=== PATIENT | male | born 1930 | race Caucasian/White ===

== ENCOUNTER → 2016-07-11 | Outpatient (REF) | payer MEDICARE ==
[~2016-07-11] MED LIST: /PANT40TA PO; /TAMS4CA PO; ACET50TA PO; ASCO25TA PO; ASPI1TAB PO; ASPI81TA21 PO; CARV12.5 PO; CELE40TA PO; CIPR500T89 PO; CORE25TA PO; CORE6.25 PO; FINA5TAB2 PO; FLUO40CA PO; FURO20TA PO; GLIM2TAB PO; HYDR-3713 PO; ISOS20TA2 PO; ISOS30TA4 PO; LASI20TA PO; LASI40TA PO; LISI-542 PO; MECL12.575 PO; RANI150T PO; SIMV20TA2 PO; SIMV40TA2 PO; TAMS0.4C2 PO; TIOT18INH INH; TYLE325T5 PO
[2016-07-11 16:05] LABS: ALBUMIN 3.9 GM/DL (3.2-5.2); ALBUMIN/GLOBULIN RATIO 1.22 (1.00-1.93); BILIRUBIN,TOTAL 0.5 MG/DL (0.2-1.0); CALCIUM LEVEL 8.6 MG/DL (8.8-10.2); CREATININE FOR GFR 1.32 MG/DL (0.70-1.30); GLOMERULAR FILTRATION RATE 54.7 (>35); POTASSIUM SERUM 4.3 MEQ/L (3.5-5.1); TOTAL PROTEIN 7.1 GM/DL (6.4-8.2)
== END ==
LOC: M LABDRWSH 15:25
PROVIDERS: ATTEND Emergency Medicine
DX: E11.9 Type 2 diabetes mellitus without complications (principal); I10 Essential (primary) hypertension; E78.2 Mixed hyperlipidemia; E55.9 Vitamin D deficiency, unspecified

== ENCOUNTER 2016-11-12 13:58 | Inpatient (IN) | payer MEDICARE ==
[~2016-11-12] VITALS: Ht 175.3 cm; Wt 84.0 kg
[2016-11-12] MEDS ORDERED: ONDANSETRON 4 MG ORAL DISINTEGRATING TAB (S0181) PO ONE (15:00)
--- NOTE | 2016-11-12 15:34 | REP ---
ABDOMEN, FLAT UPRIGHT PA CHEST, THREE VIEWS: HISTORY: Abdominal pain. COMPARISON: 04/06/2015. A small amount of air is present in small and large intestine. There are no air fluid levels or dilated loops of intestine. There is no pneumoperitoneum. Linear density is present in the left lower lobe consistent with atelectasis or scar. The right lung is clear. IMPRESSION: 1. Nonspecific bowel gas pattern. 2. Left lower lobe atelectasis or scar. Signed by Rajesh Munguia MD 11/12/2016 03:49 P
[2016-11-12 15:59] LABS: BASO % 0.7 % (0.0-1.0); EOS # 0.1 K/mm3 (0.0-0.50); EOS % 0.7 % (0.0-3.0); LARGE UNSTAINED CELL # 0.2 K/mm3 (0.0-0.4); LARGE UNSTAINED CELL % 1.9 % (0.0-4.0); LYMPH # 1.4 K/mm3 (1.5-4.5); MEAN CORPUSCULAR HEMOGLOBIN 31.8 pg (27.0-33.0); MEAN CORPUSCULAR HGB CONC 34.1 g/dl (32.0-36.5); MEAN CORPUSCULAR VOLUME 93.5 fl (80.0-96.0); MONO # 0.5 K/mm3 (0.0-0.8); MONO % 6.6 % (0.0-5.0); NEUTROPHILS # 6.2 K/mm3 (1.8-7.7); NEUTROPHILS % 75.2 % (36.0-66.0); PLATELET COUNT, AUTOMATED 213 k/mm3 (150-450); RED CELL DISTRIBUTION WIDTH 12.9 % (11.5-14.5); WHITE BLOOD COUNT 8.2 K/mm3 (4.0-10.0)
[2016-11-12 16:21] LABS: ALBUMIN 4.1 GM/DL (3.2-5.2); ALBUMIN/GLOBULIN RATIO 1.03 (1.00-1.93); BILIRUBIN,DIRECT 0.2 MG/DL (0.0-0.2); CALCIUM LEVEL 9.5 MG/DL (8.8-10.2); CREATININE FOR GFR 2.15 MG/DL (0.70-1.30); GLOMERULAR FILTRATION RATE 31.1 (>35); TOTAL PROTEIN 8.1 GM/DL (6.4-8.2)
[2016-11-12] MEDS ORDERED: NS 1,000 ML IV ONE (16:30)
[2016-11-12 16:32] LABS: POTASSIUM SERUM 5.3 MEQ/L (3.5-5.1)
[2016-11-12] MEDS ORDERED: HumuLIN R (REGULAR) INSULIN (NovoLIN R) **100U/ML** PER UNIT IV ONE (16:45)
[2016-11-12 16:50] LABS: VENOUS BASE EXCESS -2.5 (-2.0-2.0); VENOUS O2 SATURATION 32.3 % (60.0-80.0); VENOUS PARTIAL PRESSURE CO2 48.7 mmHg (38.0-50.0); VENOUS STANDARD HCO3 20.8 MEQ/L; VENOUS TOTAL CO2 25.7 MEQ/L (24.0-28.0)
[2016-11-12] MEDS ORDERED: SERT50TA PO (18:09)
[2016-11-12] MEDS ORDERED: BUPR150T3 PO (18:09)
[2016-11-12] MEDS ORDERED: SITA50TAB PO (18:09)
[2016-11-12] MEDS ORDERED: FLOM5CAP PO (18:09)
[2016-11-12] MEDS ORDERED: CARV25TA PO (18:11)
[2016-11-12] MEDS ORDERED: ONDANSETRON 4MG/2ML VIAL (J2405) IV PRN (19:30)
[2016-11-12] MEDS ORDERED: PERCOCET 5MG/325MG TAB PO PRN (19:30)
[2016-11-12] MEDS ORDERED: GLUCOSE 4 GM CHEW TABLET PO PRN (19:30)
[2016-11-12] MEDS ORDERED: ACETAMINOPHEN TAB 650MG DOSE (2X325MG) PO PRN (19:30)
[2016-11-12] MEDS ORDERED: NS 1,000 ML IV SCH (19:30)
[2016-11-12] MEDS ORDERED: BISACODYL 5 MG TAB PO PRN (19:30)
[2016-11-12] MEDS ORDERED: DEXTROSE 50% 50 ML SYRINGE IV PRN (19:30)
[2016-11-12] MEDS ORDERED: GLUCAGON FOR INJ 1 MG VIAL (J1610) SC PRN (19:30)
[2016-11-12] MEDS: NS 1,000 ML IV SCH (19:56)
[2016-11-12] MEDS ORDERED: CARVedilol 12.5 MG TAB PO SCH (21:00)
[2016-11-12] MEDS: HumaLOG INSULIN (NovoLOG) PER UNIT SC SCH (21:00)
[2016-11-12 21:04] LABS: CALCIUM LEVEL 8.7 MG/DL (8.8-10.2); CREATININE FOR GFR 1.79 MG/DL (0.70-1.30); GLOMERULAR FILTRATION RATE 38.4 (>35); POTASSIUM SERUM 4.5 MEQ/L (3.5-5.1)
[2016-11-12] MEDS: HEPARIN SOD (PORCINE) 5000 UNITS/ML VIAL SC SCH (21:21)
[2016-11-12] MEDS: SERTRALINE HCL 50 MG TAB PO SCH (21:22)
[2016-11-12] MEDS: ASPIRIN 81 MG ENTERIC TAB PO SCH (21:22)
[2016-11-12] MEDS: TAMSULOSIN 0.4 MG CAP PO SCH (21:23)
[2016-11-12] MEDS: ISOSORBIDE MON. (IMDUR) 30 MG XR TAB PO SCH (21:31)
[2016-11-12] MEDS: SIMVASTATIN 40 MG TAB PO SCH (22:47)
[2016-11-12 23:27] VITALS: BP 105/57
[2016-11-13] VITALS: BP 92/50
[2016-11-13] MEDS ORDERED: METOPROLOL TART 50 MG TAB PO ONE (01:30)
[2016-11-13 04:00] VITALS: BP 109/54
[2016-11-13 07:35] LABS: BASO % 0.6 % (0.0-1.0); EOS # 0.2 K/mm3 (0.0-0.50); LARGE UNSTAINED CELL # 0.2 K/mm3 (0.0-0.4); LARGE UNSTAINED CELL % 2.1 % (0.0-4.0); LYMPH # 1.4 K/mm3 (1.5-4.5); LYMPH % 18.5 % (24.0-44.0); MEAN CORPUSCULAR HGB CONC 32.5 g/dl (32.0-36.5); MEAN CORPUSCULAR VOLUME 95.4 fl (80.0-96.0); MONO # 0.6 K/mm3 (0.0-0.8); MONO % 7.4 % (0.0-5.0); NEUTROPHILS # 5.3 K/mm3 (1.8-7.7); NEUTROPHILS % 69.4 % (36.0-66.0); PLATELET COUNT, AUTOMATED 207 k/mm3 (150-450); WHITE BLOOD COUNT 7.6 K/mm3 (4.0-10.0)
[2016-11-13 07:42] LABS: ALBUMIN 3.9 GM/DL (3.2-5.2); ALBUMIN/GLOBULIN RATIO 1.22 (1.00-1.93); BILIRUBIN,TOTAL 0.6 MG/DL (0.2-1.0); CREATININE FOR GFR 1.79 MG/DL (0.70-1.30); GLOMERULAR FILTRATION RATE 38.4 (>35); MAGNESIUM LEVEL 2.2 MG/DL (1.8-2.4); POTASSIUM SERUM 4.8 MEQ/L (3.5-5.1); TOTAL PROTEIN 7.1 GM/DL (6.4-8.2)
[2016-11-13] MEDS: METOPROLOL TART 50 MG TAB PO SCH ×2 (07:51→21:49)
[2016-11-13] MEDS: HEPARIN SOD (PORCINE) 5000 UNITS/ML VIAL SC SCH ×2 (07:53→21:50)
[2016-11-13] MEDS: HumaLOG INSULIN (NovoLOG) PER UNIT SC SCH ×4 (07:53→21:51)
[2016-11-13 08:00] VITALS: BP 131/61
[2016-11-13] MEDS: buPROPion **XL** TABLET 150MG (WELLBUTRIN XL) PO SCH (08:54)
[2016-11-13] MEDS: FINASTERIDE 5 MG TAB PO SCH (08:54)
--- NOTE | 2016-11-13 08:55 | REP ---
CHEST, TWO VIEWS: Two views of the chest are performed and compared to prior study of 04/06/2015. There is bibasilar linear fibroatelectatic change. No infiltrates are seen. The heart is normal in size. There is mild tortuosity of the thoracic aorta. The mediastinal silhouette is unchanged. Left single lead pacemaker is again noted. There are mild degenerative changes of the spine. IMPRESSION: Mild linear bibasilar fibroatelectatic change without acute infiltrate. Signed by Navid Sharp MD 11/13/2016 01:45 P
[2016-11-13] MEDS ORDERED: LISINOPRIL 5 MG TAB PO SCH (09:00)
[2016-11-13] MEDS ORDERED: FUROSEMIDE 20 MG TAB PO SCH (09:00)
[2016-11-13] MEDS ORDERED: METOPROLOL TART 25 MG TABLET PO SCH (09:00)
[2016-11-13] MEDS: LEVEMIR (INSULIN DETEMIR) 1 UNITS/0.01ML SC SCH (09:00)
--- NOTE | 2016-11-13 12:33 | HPE ---
DATE OF ADMISSION: 11/12/2016 PRIMARY CARE PHYSICIAN: Dr. Dewitt SUPERINTENDENT PLANT: Dr. Elizondo CHIEF COMPLAINT: Generalized weakness, nausea and abdominal pain. HISTORY OF PRESENT ILLNESS: Mr. Perez is an 86-year-old male with multiple past medical histories, who presented to the emergency room (ER) due to experiencing generalized weakness for the past three weeks. The patient also expressed that he has been experiencing abdominal pain with nausea. The patient had several episodes of vomiting. However, the patient denies having blood in the vomit and the patient also expressed that he had some episodes of constipation. However, after using laxatives, the patient developed diarrhea. The patient expressed that for the past several days his nausea was increased to the point that he could not eat anything and even thinking of food causes him to be more nauseated. The patient denies sick contact. The patient denies any new diet. The patient expressed that he has been passing gas and sometimes he had dry heaves. The patient was accompanied by his son, who expressed that due to the patient's being more weak, he decided to bring the patient to the hospital. The patient denies seizure type activity, losing consciousness. The patient also denies fevers. However, the patient had some chills and night sweats for the past two weeks. ALLERGIES: GABAPENTIN and OMEPRAZOLE. PAST MEDICAL HISTORY: 1. Chronic atrial fibrillation, rate controlled. 2. Period of bradycardia in the past. 3. Chronic dyspnea, unknown etiology with chest CT and a chest x-ray shows no primary congestion, pneumonia, pneumothorax, emphysema in the past. However, the patient had some chronic fibroatelectatic changes. 4. Acute kidney injury. 5. Coronary artery disease, status post percutaneous coronary angioplasty, stable. 6. Hypertension, stable. 7. Benign prostatic hypertrophy (BPH). 8. Diabetes mellitus type 2. 9. Hyperlipidemia. PAST SURGICAL HISTORY: 1. Appendectomy. 2. Cholecystectomy. 3. Hernia repair. 4. Laminectomy. HOME MEDICATION: - Tylenol 650 mg by mouth every 4 hours as needed for pain - aspirin 81 mg by mouth every p.m. - buspirone 150 mg by mouth daily - carvedilol 25 mg by mouth twice a day - finasteride 5 mg by mouth daily - Lasix 30 mg by mouth daily - isosorbide mononitrate 30 mg by mouth every p.m. - lisinopril 5 mg by mouth daily - sertraline HCL by mouth 15 mg by mouth every p.m. - simvastatin 40 mg by mouth nightly - Januvia 5 mg by mouth daily - Flomax 0.4 mg by mouth every p.m. FAMILY HISTORY: The patient has two daughters and a son, who are healthy for their age. The patient had 7 sisters and 2 brothers, who all due to old age and Alzheimer's. The patient's father passed due to old age. The patient's mother passed due to old age. SOCIAL HISTORY: The patient lives with his and daughter. The patient's daughter has a dog and the patient has not traveled outside of the [place]. The patient quit smoking 15 years ago; however, the patient started smoking at age 11 about two to three packs per day. The patient stopped drinking in 1975. The patient has not used illicit drugs. REVIEW OF SYSTEMS: GENERAL: The patient does not know if he has fever, however , the patient has experienced chills and night sweats for the past few weeks. The patient denies weight loss of weight gain. HEENT: The patient denies any acute visual or hearing changes. The patient, however, experiencing lightheadedness and dizziness. The patient denies problem with chewing food or sinusitis. NECK: The patient denies lumps, bumps, or decreased range of motion of his neck. HEART: The patient denies palpitations, racing or skipping heart beat or chest pain. LUNGS: The patient says that he has been coughing, however, he has a chronic cough. However, the patient denies increase of the cough or wheezing. ABDOMEN: The patient expressed that he has been having abdominal pain and dry heaves and nauseous for the past two weeks. However, the patient denies melena, hematochezia, hematemesis. The patient also has vomiting. NEURO: The patient has a history of transient ischemic attack (TIA), severe seizure type activities. PHYSICAL EXAMINATION: VITAL SIGNS: Temperature 97.1, pulse 75, respiratory rate 18, blood pressure 123/76, pulse oximetry 95% on room air. GENERAL APPEARANCE: The patient was lying in bed in no acute distress. The patient was awake, alert and oriented to time, place, and person. HEENT: Normocephalic, atraumatic. Pupils equally round and reactive to light. Oral mucosa was dry. NECK: Supple. No lymphadenopathy or thyromegaly. No jugular venous distension (JVD). HEART: Irregularly irregular. ABDOMEN: Soft. The patient has no tenderness to palpation in both upper and lower abdominal quadrants. Positive bowel sounds in all quadrants. EXTREMITIES: No lower extremity edema. Normal range of motion in both upper and lower extremities. NEURO: Cranial nerves II/XII intact. No focal deficiencies. LABORATORY DATA: White blood cells 8.2, red blood cells 4.64, hemoglobin 14.8, hematocrit 43.4, MCV 93.5, MCH 31.8, MCHC 34.1, red cell distribution width (RDW ) 12.9, platelet count 213. Neutrophil percentage 25.2, lymphocyte percentage 15, monocyte percentage 6.6, eosinophil percentage 0.7, basophil percentage 0.7, leukocyte percentage 1.9. Bicarbonate standard 20.8. Arterial blood gas (ABG): pH 7.314. pCO2 48.7, pO2 is 21, HCO3 24.2, total CO2 25.7, oxygen saturation 32.3. Sodium 130, potassium 5.3, chloride 91, carbon dioxide 25, anion gap 14, BUN 46, creatine 2.15, glomerular filtration rate 31.1, fasting glucose 443, lactic acid 2.2, calcium 9.5, total bilirubin 1, direct bilirubin 0.2, AST 16, ALT 24, alkaline phosphatase 114, total protein 8.1, lipase 138, amylase 20. Urinalysis: Urine color yellow. Urine appearance clear. Urine pH 5. Urine specific gravity 1.024. Urine protein negative. Urine glucose 3+. Urine ketones trace. Urine blood negative. Urine nitrite negative. Urine bilirubin negative. Urine urobilinogen 0.2. Urine leukocyte esterase negative. Urine white blood cells 1. Urine blood cells 2. Urine hyaline cast 5. Urine bacteria negative. Urine squamous epithelial cells 0. ASSESSMENT AND PLAN: 1. Generalized weakness. This is possibly secondary to hyperglycemia versus dehydration secondary to nausea and vomiting. At this time, the patient has received one liter of normal saline bolus and we will continue the patient with gentle IV fluid. I made the patient nothing by mouth due to nausea and vomiting and will continue monitoring the patient 2. Abdominal pain/nausea. At this time, the patient is nothing by mouth. Abdominal x-ray was negative for any pathologies including obstruction. Will continue the patient with normal saline with gentle IV fluid. 3. Hyponatremia. This is possibly pseudohyponatremia secondary to diabetes versus hypovolemic hyponatremia. The patient is on gentle IV fluid. The patient has received one liter of normal saline at the emergency room (ER). Will continue monitoring the patient for any abnormal symptoms. 4. Hyperkalemia. This is possibly secondary to acute kidney injury. The patient has received 7 units of Humulin insulin. We will check basic metabolic panel (BMP). Also we have ordered electrocardiogram (EKG), result is pending at this time. 5. Atrial fibrillation. The patient is on aspirin, however, CHADS VASc score indicated warfarin. However, the warfarin was stopped by primary care physician possibly secondary to fall. The patient is also on Coreg. 6. Benign prostatic hypertrophy (BPH) is on Flomax and Proscar. 7. Coronary artery disease. The patient is on Coreg and statin. 8. Hypertension. The patient is stable. The patient was on Lasix and lisinopril. However, we hold this medication due to acute kidney injury. 9. Acute kidney injury. This is possibly secondary to dehydration. The patient was on Lasix and lisinopril. However, we hold these medications. 10. Hyperlipidemia. Will continue the patient on Zocor. 11. Chronic dyspnea. On the abdominal x-ray, it indicated left lower lobe atelectasis or possibly a scar. I have ordered chest x-ray and the result is pending at this time. However, based on the previous history and physicals, the patient had some chronic fibroatelectatic changes. Will continue to monitor the patient for any abnormal symptoms. 12. Deep vein thrombosis (DVT) prophylaxis. The patient is on heparin 5000 units every 12 hours. My preceptor for this patient encounter was Dr. Sheyla Herrera. The preceptor was physically present in the building during the encounter and was fully available. As needed, all aspects of the patient interview, examination, medical decision making process, and medical care plan development were reviewed and approved by the preceptor. The preceptor is aware and concurs with the plan as stated in the body of this note and will attest to such by his/her cosignature. I have seen and examined the above patient and agree with the plan as documented above. ИРИНА
[2016-11-13] MEDS: NS 1,000 ML IV SCH (12:40)
[2016-11-13 14:00] VITALS: BP 121/82
--- NOTE | 2016-11-13 16:15 | IPNPDOC ---
Subjective Date Seen The patient was seen on 11/13/16. Subjective Chief Complaint/HPI The patient is a 86-year-old male admitted with a reason for visit of Nick; Hyperglycemia. Events since last encounter feels much better this am . feels stronger, tiredness and malainse improved. no dizziness, appetite better, able to eat. No fever or chills, no chest pain or SOB , no abdominal pain , nausea or vomiting or diarrhea. Objective Physical Examination General Exam: Positive: Alert, Cooperative, No Acute Distress Eye Exam: Positive: PERRLA, Conjunctiva & lids normal, EOMI, Negative: Sclera icteric ENT Exam: Positive: Atraumatic, Mucous membr. moist/pink, Pharynx Normal Neck Exam: Positive: Supple, Negative: JVD, thyromegaly Chest Exam: Positive: Clear to auscultation, Normal air movement Heart Exam: Positive: Rate Normal, Irregular Rhythm, Normal S1, Normal S2 Telemetry: Positive: Atrial fibrillation Abdomen Exam: Positive: Normal bowel sounds, Soft, Negative: Tenderness, Hepatospenomegaly Extremity Exam: Positive: Normal pulses, Negative: Clubbing, Cyanosis, Edema Skin Exam: Positive: Nl turgor and temperature, Negative: Rash, Breakdown Assessment /Plan Problems (1) Hyperglycemia due to type 2 diabetes mellitus Status: Acute Problem Text: Has uncontrolled diabetes will start patient on levemir , will continue with lispro as per sliding scale. continue gentle hydration. (2) CAD S/P percutaneous coronary angioplasty Status: Chronic Problem Text: continue asa, statin and betablocker and isosorbide. (3) Afib Status: Chronic Problem Text: continue metoprolol. rate controlled. (4) Hypertension Status: Chronic Problem Text: hold lisinopril , continue metoprolol. (5) BPH (benign prostatic hyperplasia) Status: Chronic Problem Text: continue flomax and finasteride. (6) Hypercholesteremia Status: Chronic Problem Text: continue statin. (7) Depression Status: Chronic Problem Text: continue bupropion and sertraline. (8) Acute kidney injury superimposed on CKD Status: Acute Problem Text: due to hyperglycemia with osmotic diuresis, poor intake, vomiting and diarrhea in the recent past. will continue ivf. hold lisinopril and lasix. Has baseline CKD 3. Plan/VTE VTE Prophylaxis Ordered?: Yes VS, I&O, 24H, Fishbone Vital Signs/I&O Vital Signs Date Time Temp Pulse Resp B/P (MAP) Pulse Ox O2 Delivery O2 Flow Rate FiO2 11/13/16 08:00 96.8 74 18 131/61 (84) 96 Room Air I&O- Last 24 Hours up to 6 AM 11/13/16 06:00 Intake Total 1480 ml Output Total 250 ml Balance 1230 ml Laboratory Data 24H LABS Laboratory Tests 2 11/12/16 16:38: Blood Gas Bicarbonate Standard 20.8, Venous Blood pH 7.314L, Venous Blood Partial Pressure CO2 48.7, Venous Blood Partial Pressure O2 21.0L, Venous Blood Total Carbon Dioxide 25.7, Venous Blood HCO3 24.2, Venous Blood Oxygen Saturation 32.3L, Venous Blood Base Excess -2.5L 11/12/16 18:32: Bedside Glucose (Misc Panel) 369H 11/12/16 19:35: Bedside Glucose (Misc Panel) 334H 11/12/16 20:15: Anion Gap 8, Glomerular Filtration Rate 38.4, Lactic Acid Followup at 4 Hours 1.6, Blood Urea Nitrogen 43H, Creatinine 1.79H, Sodium Level 132L, Potassium Level 4.5, Chloride Level 98, Carbon Dioxide Level 26, Calcium Level 8.7L 11/12/16 20:52: Bedside Glucose (Misc Panel) 322H 11/13/16 01:14: Bedside Glucose (Misc Panel) 381H 11/13/16 06:47: Bedside Glucose (Misc Panel) 340H 11/13/16 07:04: White Blood Count 7.6, Red Blood Count 4.31, Hemoglobin 13.4L, Hematocrit 41.1L , Mean Corpuscular Volume 95.4, Mean Corpuscular Hemoglobin 31.0, Mean Corpuscular Hemoglobin Concent 32.5, Red Cell Distribution Width 13.0, Platelet Count 207, Neutrophils (%) (Auto) 69.4H, Lymphocytes (%) (Auto) 18.5L, Monocytes (%) (Auto) 7.4H, Eosinophils (%) (Auto) 2.0, Basophils (%) (Auto) 0.6 , Neutrophils # (Auto) 5.3, Lymphocytes # (Auto) 1.4L, Monocytes # (Auto) 0.6, Eosinophils # (Auto) 0.2, Basophils # (Auto) 0.0, Large Unclassified Cells % 2.1 , Large Unclassified Cells # 0.2, Anion Gap 8, Glomerular Filtration Rate 38.4, Blood Urea Nitrogen 40H, Creatinine 1.79H, Sodium Level 128L, Potassium Level 4.8, Chloride Level 93L, Carbon Dioxide Level 27, Calcium Level 9.0, Aspartate Amino Transf (AST/SGOT) 18, Alanine Aminotransferase (ALT/SGPT) 23, Alkaline Phosphatase 93, Total Bilirubin 0.6, Total Protein 7.1, Albumin 3.9, Magnesium Level 2.2, Albumin/Globulin Ratio 1.22 11/13/16 11:43: Bedside Glucose (Misc Panel) 342H CBC/BMP Laboratory Tests 11/12/16 20:15 Calcium Level 8.7 L 11/13/16 07:04 Calcium Level 9.0, Red Blood Count 4.31, Mean Corpuscular Volume 95.4, Mean Corpuscular Hemoglobin 31.0, Mean Corpuscular Hemoglobin Concent 32.5, Red Cell Distribution Width 13.0, Neutrophils (%) (Auto) 69.4 H, Lymphocytes (%) (Auto) 18.5 L, Monocytes (%) (Auto) 7.4 H, Eosinophils (%) (Auto) 2.0, Basophils (%) ( Auto) 0.6, Neutrophils # (Auto) 5.3, Lymphocytes # (Auto) 1.4 L, Monocytes # ( Auto) 0.6, Eosinophils # (Auto) 0.2, Basophils # (Auto) 0.0, Aspartate Amino Transf (AST/SGOT) 18, Alanine Aminotransferase (ALT/SGPT) 23, Alkaline Phosphatase 93, Total Bilirubin 0.6, Total Protein 7.1, Albumin 3.9 Microbiology Microbiology 11/12/16 Urine Culture - Final, Complete JUSTIN MARAVILLA MD Nov 13, 2016 16:15
[2016-11-13 18:00] VITALS: BP 140/83
[2016-11-13] MEDS: ISOSORBIDE MON. (IMDUR) 30 MG XR TAB PO SCH (21:48)
[2016-11-13] MEDS: TAMSULOSIN 0.4 MG CAP PO SCH (21:48)
[2016-11-13] MEDS: ASPIRIN 81 MG ENTERIC TAB PO SCH (21:48)
[2016-11-13] MEDS: SIMVASTATIN 40 MG TAB PO SCH (21:48)
[2016-11-13] MEDS: SERTRALINE HCL 50 MG TAB PO SCH (21:49)
[2016-11-13 22:00] VITALS: BP 135/76
[2016-11-14] MEDS: NS 1,000 ML IV SCH (05:20)
--- NOTE | 2016-11-14 05:47 | ECGEPIP ---
Stationary ECG Study [facility] Test Date: 2016-11-13 Pat Name: HUMA TOTH Department: ED Room: [place] [address] Gender: M Signaler: beena : [id number] Requested By: EVERT CONNORS Order Number: [id number] Reading MD: Jason Zuniga Measurements Intervals [place] Rate: 82 P: ME: 0 QRS: 94 QRSD: 153 T: -68 QT: 419 QTc: 490 Interpretive Statements Atrial fibrillation with a controlled ventricular response Right bundle branch block Nonspecific repolarization abnormalities Compared to prior tracing of 04/05/2015, pacemaker activity is not evident on this tracing---previous tracing revealed 100% paced ventricular complexes Electronically Signed On 11-14-2016 5:47:08 EDT by Jason Zuniga
[2016-11-14 06:00] VITALS: BP 122/78
[2016-11-14 07:21] LABS: BASO % 0.5 % (0.0-1.0); EOS # 0.2 K/mm3 (0.0-0.50); EOS % 3.7 % (0.0-3.0); LARGE UNSTAINED CELL # 0.2 K/mm3 (0.0-0.4); LARGE UNSTAINED CELL % 2.6 % (0.0-4.0); LYMPH # 1.5 K/mm3 (1.5-4.5); LYMPH % 23.3 % (24.0-44.0); MEAN CORPUSCULAR HEMOGLOBIN 31.9 pg (27.0-33.0); MEAN CORPUSCULAR HGB CONC 33.9 g/dl (32.0-36.5); MEAN CORPUSCULAR VOLUME 94.2 fl (80.0-96.0); MONO # 0.5 K/mm3 (0.0-0.8); MONO % 7.8 % (0.0-5.0); NEUTROPHILS # 3.7 K/mm3 (1.8-7.7); NEUTROPHILS % 62.1 % (36.0-66.0); PLATELET COUNT, AUTOMATED 165 k/mm3 (150-450); RED CELL DISTRIBUTION WIDTH 13.1 % (11.5-14.5)
[2016-11-14] MEDS: GLIMEPIRIDE 2 MG TAB PO SCH (07:30)
[2016-11-14 07:43] LABS: ALBUMIN 3.1 GM/DL (3.2-5.2); ALBUMIN/GLOBULIN RATIO 1.07 (1.00-1.93); BILIRUBIN,TOTAL 0.6 MG/DL (0.2-1.0); CALCIUM LEVEL 8.7 MG/DL (8.8-10.2); CREATININE FOR GFR 1.28 MG/DL (0.70-1.30); GLOMERULAR FILTRATION RATE 56.6 (>35); MAGNESIUM LEVEL 2.1 MG/DL (1.8-2.4); POTASSIUM SERUM 4.6 MEQ/L (3.5-5.1)
[2016-11-14] MEDS: buPROPion **XL** TABLET 150MG (WELLBUTRIN XL) PO SCH (08:25)
[2016-11-14] MEDS: FINASTERIDE 5 MG TAB PO SCH (08:25)
[2016-11-14] MEDS: HumaLOG INSULIN (NovoLOG) PER UNIT SC SCH ×4 (08:26→21:35)
[2016-11-14] MEDS: LEVEMIR (INSULIN DETEMIR) 1 UNITS/0.01ML SC SCH (08:26)
[2016-11-14] MEDS: HEPARIN SOD (PORCINE) 5000 UNITS/ML VIAL SC SCH ×2 (08:26→21:34)
[2016-11-14] MEDS: METOPROLOL TART 50 MG TAB PO SCH ×2 (08:27→21:34)
[2016-11-14] MEDS: SITagliptin 50 MG TAB (JANUVIA) PO SCH (09:00)
[2016-11-14 14:00] VITALS: BP_SYST 121; BP_SYST 135; BP_DIAS 60; BP_DIAS 89
[2016-11-14] MEDS: ASPIRIN 81 MG ENTERIC TAB PO SCH (21:32)
[2016-11-14] MEDS: ISOSORBIDE MON. (IMDUR) 30 MG XR TAB PO SCH (21:32)
[2016-11-14] MEDS: TAMSULOSIN 0.4 MG CAP PO SCH (21:32)
[2016-11-14] MEDS: SIMVASTATIN 40 MG TAB PO SCH (21:32)
[2016-11-14] MEDS: SERTRALINE HCL 50 MG TAB PO SCH (21:33)
[2016-11-14 22:00] VITALS: BP 140/69
[2016-11-15 06:00] VITALS: BP 112/57
[2016-11-15 07:04] LABS: BASO % 0.7 % (0.0-1.0); EOS # 0.2 K/mm3 (0.0-0.50); EOS % 4.1 % (0.0-3.0); LARGE UNSTAINED CELL # 0.2 K/mm3 (0.0-0.4); LARGE UNSTAINED CELL % 3.3 % (0.0-4.0); LYMPH # 1.3 K/mm3 (1.5-4.5); LYMPH % 22.2 % (24.0-44.0); MEAN CORPUSCULAR HEMOGLOBIN 31.5 pg (27.0-33.0); MEAN CORPUSCULAR HGB CONC 33.1 g/dl (32.0-36.5); MEAN CORPUSCULAR VOLUME 95.1 fl (80.0-96.0); MONO # 0.5 K/mm3 (0.0-0.8); MONO % 8.9 % (0.0-5.0); NEUTROPHILS # 3.6 K/mm3 (1.8-7.7); NEUTROPHILS % 60.8 % (36.0-66.0); PLATELET COUNT, AUTOMATED 152 k/mm3 (150-450); WHITE BLOOD COUNT 5.9 K/mm3 (4.0-10.0)
[2016-11-15] MEDS ORDERED: GLIM2TA PO (07:06)
[2016-11-15 07:21] LABS: ALBUMIN 3.2 GM/DL (3.2-5.2); ALBUMIN/GLOBULIN RATIO 1.14 (1.00-1.93); BILIRUBIN,TOTAL 0.4 MG/DL (0.2-1.0); CALCIUM LEVEL 8.5 MG/DL (8.8-10.2); CREATININE FOR GFR 1.22 MG/DL (0.70-1.30); GLOMERULAR FILTRATION RATE 59.8 (>35); MAGNESIUM LEVEL 2.1 MG/DL (1.8-2.4); POTASSIUM SERUM 4.2 MEQ/L (3.5-5.1)
--- NOTE | 2016-11-15 08:22 | IPNPDOC ---
Text Note Date of Service The patient was seen on 11/14/16. NOTE Subjective: Patient seen and examined at bedside. Is c/o of head pressure and L-sided neck pain. Some vague abdominal pain. Denies fevers, chills, nausea, vomiting, diarrhea. Denies loss of appetite. No BM today when interviewed. Patient states slept beautifully, got up, and started feeling "lousy" and so he started taking a nap and went back to sleep. States even after a good night's rest, he started to feel more sleepy, and does not know why. PHYSICAL EXAMINATION: VS: T 96.6 P 71 RR 16 BP 122/78 Pulse Ox: 93% Room Air, I/O: 1240/1500 mLs, (-)260 mL balance General: Pleasant elderly male in no acute distress. Sleeping initially but alert upon waking. Calm and cooperative. HEENT: Head: normocephalic, atraumatic. Ears: Hearing grossly intact bilaterally. Eyes: sclera are nonicteric. Mouth: without teeth or dentures. Mucous membranes are moist. Nose: No external lesions. Respiratory: Clear to auscultation bilaterally without wheezes, rales or rhonchi Cardiovascular: Irregularly irregular rhythm, normal rate, with no murmurs, rubs or gallops. Neck: Supple. No cervical LAD bilaterally. Some paraspinal hypertonicity in the left cervical region and left SCM. Abdomen: Vague abdominal tenderness to the left lower quadrant, reproducible with palpation of all four quadrants. Epigastric and suprapubic regions nontender. Soft, nondistended, no hepatosplenomegaly appreciated. Bowel sounds present. Scar on LLQ abdomen since 8 years old. Extremities: No clubbing, cyanosis or edema. : No inguinal lymphadenopathy or hernias. Neurological: Alert. Answers questions appropriately. Moves all four extremities symmetrically. Integumentary: No rashes or lesions seen. Vascular: +2 radial and DP pulses bilaterally. LABORATORY DATA: Please see below for full laboratory data. HgbA1C: 11.8 POC Glucose: 279 MICROBIOLOGY: Urine cx showed no growth. IMAGING: No new imaging. ASSESSMENT: 86 yo M is presenting for new-onset acute hyperglycemia secondary to Type 2 DM and acute kidney injury superimposed on chronic kidney disease. PLAN: -Acute Hyperglycemia 2/2 Type 2 DM: Uncontrolled. POC glucose 279 and serum glucose 172 today. Will continue levemir and lispro ISS. Continue oral hydration. -CAD status-post percutaneous coronary angioplasty: continue aspirin, simvastatin, metoprolol, and imdur. -Generalized weakness likely secondary to nausea/vomiting: PT/OT were consulted. However, PT evaluated patient and patient did not need skilled PT as he was ambulating fine and at his baseline. -Hyponatremia: Likely pseudohyponatremia secondary to diabetes versus hypovolemic hyponatremia. Continue hydration/fluids. Has resolved. -Hyperkalemia: May be 2/2 to QUINN. Status-post 7 units of humulin insulin. BMP shows K WNL today. EKG done showed atrial fibrillation with a controlled ventricular response, right bundle branch block, and nonspecific repolarization abnormalities. -Atrial fibrillation: continue aspirin. Warfarin may have been discontinued by PCP secondary to fall or fall risk. Coreg discontinued. Continue metoprolol. Rate controlled today. -Benign prostatic hypertrophy: continue flomax and proscar. -CAD: continue metoprolol and simvastatin. -Hypertension: Controlled and stable. Continue metoprolol. Hold lisinopril and lasix due to QUINN. Also contributing to BP readings are imdur. -Acute kidney injury superimposed on chronic kidney disease: due to hyperglycemia with osmotic diuresis (dehydration), poor oral intake, vomiting & diarrhea recently. Continue IVF. Has baseline CKD 3. BUN 30 and Cr 1.28 and trending down to normal. Continue hydration. Hold lisinopril and lasix. -Hyperlipidemia: continue simvastatin -Depression: continue bupropion and sertraline. -Chronic dyspnea: abdominal x-ray showed LLL atelectasis or possibly a scar. CXR showed: mild linear bibasilar fibroatelectatic change without acute infiltrate which seems to be chronic. Will continue to monitor clinically. DVT ppx: SC heparin Immunizations as per protocol. My preceptor for this patient encounter was Dr. Teagan Valenzuela, and was physically present in the building during the encounter and was fully available. As needed , all aspects of the patient interview, examination, medical decision making process, and medical care plan development were reviewed and approved by the preceptor. Preceptor is aware and concurs with the plan as stated in the body of this note and will attest to such by his/her cosignature. Claudia BOYD, I+O Claudia BOYD, I+O Laboratory Tests 11/14/16 06:29 Red Blood Count 3.86 L, Mean Corpuscular Volume 94.2, Mean Corpuscular Hemoglobin 31.9, Mean Corpuscular Hemoglobin Concent 33.9, Red Cell Distribution Width 13.1, Neutrophils (%) (Auto) 62.1, Lymphocytes (%) (Auto) 23.3 L, Monocytes (%) (Auto) 7.8 H, Eosinophils (%) (Auto) 3.7 H, Basophils (%) (Auto) 0.5, Neutrophils # (Auto) 3.7, Lymphocytes # (Auto) 1.5, Monocytes # ( Auto) 0.5, Eosinophils # (Auto) 0.2, Basophils # (Auto) 0.0, Calcium Level 8.7 L , Aspartate Amino Transf (AST/SGOT) 15, Alanine Aminotransferase (ALT/SGPT) 18, Alkaline Phosphatase 73, Total Bilirubin 0.6, Total Protein 6.0 L, Albumin 3.1 # L Vital Signs Date Time Temp Pulse Resp B/P (MAP) Pulse Ox O2 Delivery O2 Flow Rate FiO2 11/14/16 08:27 71 130/60 11/14/16 06:00 96.6 16 93 Room Air I&O- Last 24 Hours up to 6 AM 11/14/16 06:00 Intake Total 1100 ml Output Total 1500 ml Balance -400 ml RIP FLORENTINO OGME-1 Nov 14, 2016 11:49
[2016-11-15] MEDS: FINASTERIDE 5 MG TAB PO SCH (08:41)
[2016-11-15] MEDS: SITagliptin 50 MG TAB (JANUVIA) PO SCH (08:41)
[2016-11-15] MEDS: GLIMEPIRIDE 2 MG TAB PO SCH (08:43)
[2016-11-15 08:44] VITALS: BP 112/57
[2016-11-15] MEDS: METOPROLOL TART 50 MG TAB PO SCH (08:44)
[2016-11-15] MEDS: HEPARIN SOD (PORCINE) 5000 UNITS/ML VIAL SC SCH (08:45)
[2016-11-15] MEDS: LEVEMIR (INSULIN DETEMIR) 1 UNITS/0.01ML SC SCH (08:46)
[2016-11-15] MEDS: HumaLOG INSULIN (NovoLOG) PER UNIT SC SCH ×2 (08:47→12:42)
[2016-11-15] MEDS: buPROPion **XL** TABLET 150MG (WELLBUTRIN XL) PO SCH (09:03)
[2016-11-15] MEDS ORDERED: LEVE1INJ5 SC (09:20)
[2016-11-15] MEDS ORDERED: BAYEKIT XX (09:20)
[2016-11-15] MEDS ORDERED: BD P31MI3 XX (09:20)
[2016-11-15] MEDS ORDERED: ALCOPAD11 XX (09:52)
[2016-11-15] MEDS ORDERED: BD L33MI XX (09:52)
[2016-11-15 14:00] VITALS: BP 124/56
--- NOTE | 2016-11-15 23:49 | DS.PDOC ---
Discharge Summary General Date of Admission Nov 12, 2016 at 20:07 Date of Discharge 11/15/16 Primary Care Physician: ABDIFATAH ORTEGA MD Attending Physician: TEAGAN VALENZUELA MD Discharge Summary CONSULTS: None PROCEDURES PERFORMED DURING HOSPITAL STAY: None DISCHARGE DIAGNOSIS: Acute Hyperglycemia 2/2 Type 2 DM Type 2 Diabetes Mellitus QUINN superimposed on CKD Generalized weakness likely 2/2 to nausea, vomiting, poor oral intake Hyponatremia Hyperkalemia SECONDARY DIAGNOSIS: CAD status-post percutaneous coronary angioplasty Atrial fibrillation Benign prostatic hypertrophy Hypertension Hyperlipidemia Depression Chronic dyspnea HOSPITAL COURSE: Mr. Perez is an 86-year-old male who presented to the [facility] ED on 11/12/16 for a 3 week hx of generalized weakness and brought in by his son due to the weakness. He also admitted to having abdominal pain with nausea and several vomiting episodes. Nausea caused him to have loss of appetite. Admitted some constipation episodes as well for which he used laxatives which induced diarrhea. He denied altering his diet in any way. Denied sick contacts. He admitted to passing gas and having dry heaves at times. Patient denied having any seizure-like activity or loss of consciousness or fevers. Admitted to a 2 week hx of chills and night sweats. After a workup, patient was found to have hyperglycemia secondary to DM II with a glucose level of 443 and a normal anion gap of 14. He was later found to have HgbA1C of 11.8. He was also found to have QUINN superimposed on CKD with BUN 46 and Cr 2.15 with GFR of 31.1. QUINN on CKD was thought to be due to hyperglycemia with osmotic diuresis, poor oral intake, recent vomiting and diarrhea. VBG was performed which showed pH 7.314/pCO2 48.7/pO2 21. Patient was also found to have a Na of 130 and a K of 5.3. Patient was started on levemir and lispro ISS , was given IVF, and oral hydration was later encouraged until patient's hyperglycemia and condition improved. His other home medications were continued. A CXR was done as well which showed mild linear bibasilar fibroatelectatic change without acute infiltrate which seemed to be chronic. Patient's glucose levels and associated medical issues improved over the hospital course. Patient is clinically and hemodynamically stable for discharge. PROGRESS NOTE ON DAY OF DISCHARGE: SUBJECTIVE: Patient seen and examined at bedside. Denies headache. Denies weakness, fevers, chills, nausea, vomiting, diarrhea, abdominal pain, dysuria, hematuria, hematochezia. Denies loss of appetite. Denies BM today. PHYSICAL EXAMINATION: VS: T 97.3 P 68 RR 18 BP 112/57 Pulse Ox: 94% Room Air, I/O: 1120/850 mLs , (+)270 mL balance 24 hour, BMs: 1 yesterday General: Pleasant elderly male in no acute distress sitting up comfortably in bed. Calm and cooperative. HEENT: Head: normocephalic, atraumatic. Ears: Hearing grossly intact bilaterally. Eyes: sclera are nonicteric. Nose: No external lesions. Respiratory: Clear to auscultation bilaterally without wheezes, rales or rhonchi Cardiovascular: Irregularly irregular rhythm, normal rate, with no murmurs, rubs or gallops. Neck: Supple. Abdomen: Soft, nontender, nondistended, no hepatosplenomegaly appreciated. Bowel sounds present. Extremities: No clubbing, cyanosis or edema. Neurological: Alert. Answers questions appropriately. Moves all four extremities symmetrically. Integumentary: No rashes or lesions seen. Vascular: +2 radial and dorsalis pedis pulses bilaterally. LABORATORY DATA: Please see below for full laboratory data. HgbA1C: 11.8 POC Glucose: 279 MICROBIOLOGY: Urine cx showed no growth. IMAGING: No new imaging. LABS: Remarkable for: Na: 135 (L) Glucose: 252 (H) POC Glucose: 249 (H) Total protein: 6 (L) Hgb: 11.9 (L) Hct: 135.8 (L) Please see below for full labs. ASSESSMENT: 86 yo M is presenting for new-onset acute hyperglycemia secondary to Type 2 DM and acute kidney injury superimposed on chronic kidney disease. DISPOSITION: Hemodynamically and clinically stable. Discharge to home with new scripts of glimepiride 4 mg daily and insulin detemir 20 units SC daily. Stop lasix and lisinopril due to CKD. FOLLOW UP: With Dr. Abdifatah Ortega PCP within 1-2 weeks ACTIVITY: As tolerated. DIET: Consistent carbohydrate MEDICATIONS ON DISCHARGE: Please see below. Cc: Dr. Abdifatah Ortega Time spent on discharge: 35 minutes Vital Signs/I&Os Vital Signs Date Time Temp Pulse Resp B/P (MAP) Pulse Ox O2 Delivery O2 Flow Rate FiO2 6/15/17 14:00 97.3 76 18 124/56 (78) 98 Room Air I&O- Last 24 Hours up to 6 AM 11/15/16 06:00 Intake Total 1020 ml Output Total 1050 ml Balance -30 ml Laboratory Data Labs 24H Laboratory Tests 2 11/15/16 06:45: White Blood Count 5.9, Red Blood Count 3.77L, Hemoglobin 11.9L, Hematocrit 35.8L , Mean Corpuscular Volume 95.1, Mean Corpuscular Hemoglobin 31.5, Mean Corpuscular Hemoglobin Concent 33.1, Red Cell Distribution Width 13.0, Platelet Count 152, Neutrophils (%) (Auto) 60.8, Lymphocytes (%) (Auto) 22.2L, Monocytes (%) (Auto) 8.9H, Eosinophils (%) (Auto) 4.1H, Basophils (%) (Auto) 0.7, Neutrophils # (Auto) 3.6, Lymphocytes # (Auto) 1.3L, Monocytes # (Auto) 0.5, Eosinophils # (Auto) 0.2, Basophils # (Auto) 0.0, Large Unclassified Cells % 3.3 , Large Unclassified Cells # 0.2, Anion Gap 6L, Glomerular Filtration Rate 59.8 , Blood Urea Nitrogen 23H, Creatinine 1.22, Sodium Level 135L, Potassium Level 4.2, Chloride Level 105, Carbon Dioxide Level 24, Calcium Level 8.5L, Aspartate Amino Transf (AST/SGOT) 15, Alanine Aminotransferase (ALT/SGPT) 19, Alkaline Phosphatase 75, Total Bilirubin 0.4, Total Protein 6.0L, Albumin 3.2, Magnesium Level 2.1, Albumin/Globulin Ratio 1.14 11/15/16 11:32: Bedside Glucose (Misc Panel) 249H CBC/BMP Laboratory Tests 11/15/16 06:45 Red Blood Count 3.77 L, Mean Corpuscular Volume 95.1, Mean Corpuscular Hemoglobin 31.5, Mean Corpuscular Hemoglobin Concent 33.1, Red Cell Distribution Width 13.0, Neutrophils (%) (Auto) 60.8, Lymphocytes (%) (Auto) 22.2 L, Monocytes (%) (Auto) 8.9 H, Eosinophils (%) (Auto) 4.1 H, Basophils (%) (Auto) 0.7, Neutrophils # (Auto) 3.6, Lymphocytes # (Auto) 1.3 L, Monocytes # ( Auto) 0.5, Eosinophils # (Auto) 0.2, Basophils # (Auto) 0.0, Calcium Level 8.5 L , Aspartate Amino Transf (AST/SGOT) 15, Alanine Aminotransferase (ALT/SGPT) 19, Alkaline Phosphatase 75, Total Bilirubin 0.4, Total Protein 6.0 L, Albumin 3.2 FSBS Laboratory Tests Test 11/15/16 11:32 Range/Units Bedside Glucose (Misc Panel) 249 83-110 MG/DL Microbiology Microbiology 11/12/16 Urine Culture - Final, Complete Discharge Medications Scheduled Aspirin (Aspirin 81) 81 Mg Tab, 81 MG PO QPM, (Reported) Bupropion Hcl (Bupropion HCl Xl) 150 Mg Tab, 150 MG PO DAILY, (Reported) Carvedilol (Carvedilol) 25 Mg Tab, 25 MG PO BID, (Reported) Finasteride (Finasteride) 5 Mg Tab, 5 MG PO DAILY, (Reported) Glimepiride (Amaryl) 2 Mg Tab, 4 MG PO DAILY@0730 Insulin Detemir (Levemir Flextouch) 100 Unit/Ml Inj, 20 UNIT SC DAILY Isosorbide Mononitrate (Isosorbide Mononitrate ER) 30 Mg Tab, 30 MG PO QPM, ( Reported) Sertraline Hcl (Sertraline HCl) 50 Mg Tab, 50 MG PO QPM, (Reported) Simvastatin - High Dose (Simvastatin) 40 Mg Tab, 40 MG PO QHS, (Reported) Sitagliptin (Januvia) 50 Mg Tab, 50 MG PO DAILY, (Reported) Tamsulosin Hydrochloride (Flomax) 0.4 Mg Cap, 0.4 MG PO QPM, (Reported) Scheduled PRN Acetaminophen (Tylenol) 325 Mg Tab, 650 MG PO Q4HP PRN for MILD PAIN (PS 1-4), ( Reported) Allergies Coded Allergies: Gabapentin (Unverified Allergy, Unknown, 03/22/15) Omeprazole (Unverified Allergy, Unknown, UNKNOWN, 11/12/16) GME ATTESTATION GME ATTESTATION My preceptor for this patient encounter was Dr. Teagan Valenzuela, and was physically present in the building during the encounter and was fully available. As needed , all aspects of the patient interview, examination, medical decision making process, and medical care plan development were reviewed and approved by the preceptor. Preceptor is aware and concurs with the plan as stated in the body of this note and will attest to such by his/her cosignature. RIP FLORENTINO OGME-1 Nov 15, 2016 23:49
== END 2016-11-15 15:45 | disposition home health service (06) | DRG 638 ==
LOC: M ED 14:51 → M ED INP 20:07 → M MSPAV 11-13 17:49
PROVIDERS: ADMIT Hospitalist; ATTEND Internal Medicine Nephrology
DX: E11.65 Type 2 diabetes mellitus with hyperglycemia (principal); E87.1 Hypo-osmolality and hyponatremia; N17.9 Acute kidney failure, unspecified; I48.2 Chronic atrial fibrillation; E87.5 Hyperkalemia; I25.10 Atherosclerotic heart disease of native coronary artery without angina pectoris; R11.2 Nausea with vomiting, unspecified; N18.3 Chronic kidney disease, stage 3 (moderate); F32.9 Major depressive disorder, single episode, unspecified; R06.00 Dyspnea, unspecified; E86.0 Dehydration; R53.1 Weakness; I12.9 Hypertensive chronic kidney disease with stage 1 through stage 4 chronic kidney disease, or unspecified chronic kidney disease; N40.0 Benign prostatic hyperplasia without lower urinary tract symptoms; E78.5 Hyperlipidemia, unspecified; Z79.82 Long term (current) use of aspirin; Z79.84 Long term (current) use of oral hypoglycemic drugs; Z79.899 Other long term (current) drug therapy; Z87.891 Personal history of nicotine dependence

== ENCOUNTER → 2016-12-28 | Outpatient (REF) | payer MEDICARE ==
[~2016-12-28] MED LIST changes: +ALCOPAD11 XX; +BAYEKIT XX; +BD L33MI XX; +BD P31MI3 XX; +BUPR150T3 PO; +CARV25TA PO; +FLOM5CAP PO; +GLIM2TA PO; +LEVE1INJ5 SC; +SERT50TA PO; +SITA50TAB PO
[2016-12-28 17:32] LABS: ALBUMIN 3.6 GM/DL (3.2-5.2); ALBUMIN/GLOBULIN RATIO 1.16 (1.00-1.93); ALKALINE PHOSPHATASE 68 U/L (45-117); ALT/SGPT 20 U/L (12-78); ANION GAP 11 MEQ/L (8-16); AST/SGOT 16 U/L (15-37); BILIRUBIN,TOTAL 0.4 MG/DL (0.2-1.0); BLOOD UREA NITROGEN 28 MG/DL (7-18); CALCIUM LEVEL 8.9 MG/DL (8.8-10.2); CARBON DIOXIDE LEVEL 27 MEQ/L (21-32); CHLORIDE LEVEL 107 MEQ/L (98-107); CHOLESTEROL LEVEL 94 MG/DL (<200); CREATININE FOR GFR 1.04 MG/DL (0.70-1.30); GLOMERULAR FILTRATION RATE > 60.0 (>35); GLUCOSE, FASTING 113 MG/DL (83-110); POTASSIUM SERUM 4.7 MEQ/L (3.5-5.1); SODIUM LEVEL 145 MEQ/L (136-145); TOTAL PROTEIN 6.7 GM/DL (6.4-8.2); TRIGLYCERIDES LEVEL 86 MG/DL (<150)
== END ==
LOC: M LABDRWSH 15:44
PROVIDERS: ATTEND Emergency Medicine
DX: E11.9 Type 2 diabetes mellitus without complications (principal); I10 Essential (primary) hypertension; E78.2 Mixed hyperlipidemia; E55.9 Vitamin D deficiency, unspecified

== ENCOUNTER → 2017-05-17 | Outpatient (CLI) | payer MEDICARE ==
[2017-05-17 15:30] LABS: ALBUMIN/GLOBULIN RATIO 1.14 (1.00-1.93); BILIRUBIN,TOTAL 0.5 MG/DL (0.2-1.0); CALCIUM LEVEL 8.6 MG/DL (8.8-10.2); CREATININE FOR GFR 1.28 MG/DL (0.70-1.30); GLOMERULAR FILTRATION RATE 56.6 (>35); POTASSIUM SERUM 4.7 MEQ/L (3.5-5.1); TOTAL PROTEIN 7.5 GM/DL (6.4-8.2)
== END ==
LOC: M SFHCSACK 08:13
PROVIDERS: ATTEND Emergency Medicine
DX: E11.9 Type 2 diabetes mellitus without complications (principal); I10 Essential (primary) hypertension; E78.2 Mixed hyperlipidemia; E55.9 Vitamin D deficiency, unspecified

== ENCOUNTER → 2017-11-11 | Outpatient (CLI) | payer MEDICARE ==
[2017-11-11 09:40] LABS: ESTIMATED AVERAGE GLUCOSE 154 MG/DL (60-110)
[2017-11-11 09:44] LABS: ALBUMIN 3.7 GM/DL (3.2-5.2); ALKALINE PHOSPHATASE 92 U/L (45-117); ALT/SGPT 18 U/L (12-78); ANION GAP 5 MEQ/L (8-16); AST/SGOT 18 U/L (7-37); BILIRUBIN,TOTAL 0.4 MG/DL (0.2-1.0); BLOOD UREA NITROGEN 30 MG/DL (7-18); CALCIUM LEVEL 8.9 MG/DL (8.8-10.2); CARBON DIOXIDE LEVEL 29 MEQ/L (21-32); CHLORIDE LEVEL 109 MEQ/L (98-107); CHOLESTEROL LEVEL 130 MG/DL (<200); CHOLESTEROL RISK RATIO 4.333 (<5); CREATININE FOR GFR 1.17 MG/DL (0.70-1.30); GLOMERULAR FILTRATION RATE > 60.0 (>35); GLUCOSE, FASTING 122 MG/DL (70-100); HDL CHOLESTEROL 30 MG/DL (>40); LDL CHOLESTEROL 74.8 MG/DL (<100); NON-HDL-C 100 MG/DL; POTASSIUM SERUM 5.1 MEQ/L (3.5-5.1); SODIUM LEVEL 143 MEQ/L (136-145); TOTAL PROTEIN 7.4 GM/DL (6.4-8.2); TRIGLYCERIDES LEVEL 126 MG/DL (<150)
[2017-11-11 09:49] LABS: TOTAL 25(OH) VITAMIN D 28.9 NG/ML (30.0-100.0)
== END ==
LOC: M WUC 08:02
DX: E11.9 Type 2 diabetes mellitus without complications (principal); I10 Essential (primary) hypertension; E78.2 Mixed hyperlipidemia; E55.9 Vitamin D deficiency, unspecified
CPT/HCPCS: 80053

== ENCOUNTER → 2018-05-06 | Outpatient (CLI) | payer MEDICARE ==
[2018-05-06 12:53] LABS: ALBUMIN 3.8 GM/DL (3.2-5.2); ALBUMIN/GLOBULIN RATIO 1.09 (1.00-1.93); ALKALINE PHOSPHATASE 85 U/L (45-117); ALT/SGPT 21 U/L (12-78); ANION GAP 8 MEQ/L (8-16); AST/SGOT 20 U/L (7-37); BILIRUBIN,TOTAL 0.6 MG/DL (0.2-1.0); BLOOD UREA NITROGEN 20 MG/DL (7-18); CALCIUM LEVEL 8.5 MG/DL (8.8-10.2); CARBON DIOXIDE LEVEL 29 MEQ/L (21-32); CHLORIDE LEVEL 104 MEQ/L (98-107); CHOLESTEROL LEVEL 121 MG/DL (<200); CHOLESTEROL RISK RATIO 3.558 (<5); CREATININE FOR GFR 1.18 MG/DL (0.70-1.30); GLOMERULAR FILTRATION RATE > 60.0 (>35); GLUCOSE, FASTING 88 MG/DL (70-100); HDL CHOLESTEROL 34 MG/DL (>40); LDL CHOLESTEROL 66 MG/DL (<100); NON-HDL-C 87 MG/DL; SODIUM LEVEL 141 MEQ/L (136-145); TOTAL PROTEIN 7.3 GM/DL (6.4-8.2); TRIGLYCERIDES LEVEL 104 MG/DL (<150)
[2018-05-06 12:57] LABS: TOTAL 25(OH) VITAMIN D 48.4 NG/ML (30.0-100.0)
[2018-05-06 13:29] LABS: ESTIMATED AVERAGE GLUCOSE 160 MG/DL (60-110); HEMOGLOBIN A1c 7.2 %
== END ==
LOC: M WUC 08:28
DX: E11.9 Type 2 diabetes mellitus without complications (principal); I10 Essential (primary) hypertension; E78.2 Mixed hyperlipidemia; E55.9 Vitamin D deficiency, unspecified
CPT/HCPCS: 80053

== ENCOUNTER 2019-07-05 17:17 | Inpatient (IN) | payer MEDICARE ==
[~2019-07-05] VITALS: Ht 175.3 cm; Wt 82.2 kg
[~2019-07-05 17:17] MED LIST changes: -/PANT40TA PO; -/TAMS4CA PO; -ACET50TA PO; -ASCO25TA PO; -ASPI1TAB PO; +ASPI81TA26 PO; +BAYE1MIS XX; -BAYEKIT XX; +FLOM0.4C39 PO; -FLOM5CAP PO; -GLIM2TA PO; -GLIM2TAB PO; +GLIM2TAB29 PO; +GLIM2TAB4 PO; -LASI20TA PO; +LASI20TA3 PO; -LASI40TA PO; +LASI40TA9 PO; +MAPA500T17 PO; -MECL12.575 PO; +MECL12.589 PO; +PROT1TAB2 PO; +SERT-141 PO; -SERT50TA PO; -SIMV40TA2 PO; +SIMV40TA20 PO; +VITA1TAB23 PO
[2019-07-05] MEDS ORDERED: VITA50005 PO (17:46)
[2019-07-05 18:12] LABS: BASO % 0.5 % (0.0-1.0); EOS # 0.2 10^3/uL (0.0-0.5); EOS % 3.3 % (0.0-3.0); HEMATOCRIT 43.6 % (42.0-52.0); LYMPH % 16.2 % (24.0-44.0); MEAN CORPUSCULAR HEMOGLOBIN 29.9 pg (27.0-33.0); MEAN CORPUSCULAR HGB CONC 32.1 g/dl (32.0-36.5); MONO # 0.6 10^3/uL (0.0-0.8); MONO % 9.5 % (0.0-5.0); NEUTROPHILS # 4.5 10^3/uL (1.5-8.5); NEUTROPHILS % 70.2 % (36.0-66.0); PLATELET COUNT, AUTOMATED 203 10^3/uL (150-450); RED BLOOD COUNT 4.69 10^6/uL (4.30-6.10); WHITE BLOOD COUNT 6.4 10^3/uL (4.0-10.0)
[2019-07-05 18:25] LABS: INR 1.09; PROTHROMBIN TIME 13.9 SECONDS (11.8-14.0)
[2019-07-05 18:38] LABS: INFLUENZA A AMPLIFICATION NEGATIVE (NEGATIVE); INFLUENZA B AMPLIFICATION NEGATIVE (NEGATIVE)
[2019-07-05 18:50] LABS: ALBUMIN 3.9 GM/DL (3.2-5.2); ALT/SGPT 25 U/L (12-78); BILIRUBIN,DIRECT 0.2 MG/DL (0.0-0.2); BILIRUBIN,TOTAL 0.8 MG/DL (0.2-1.0); BLOOD UREA NITROGEN 29 MG/DL (7-18); CALCIUM LEVEL 9.5 MG/DL (8.8-10.2); CARBON DIOXIDE LEVEL 27 MEQ/L (21-32); CHLORIDE LEVEL 96 MEQ/L (98-107); CK-MB VALUE MASS 2.1 NG/ML (<3.6); CPK CREATINE PHOSPHOKINASE 56 U/L (39-308); CREATININE FOR GFR 1.71 MG/DL (0.70-1.30); GLOMERULAR FILTRATION RATE 40.3 (>35); GLUCOSE, FASTING 552 MG/DL (70-100); MB/CK RELATIVE INDEX 3.75 (< OR =4); NT-PRO BNP 2316 PG/ML (<450); POTASSIUM SERUM 4.9 MEQ/L (3.5-5.1); SODIUM LEVEL 131 MEQ/L (136-145); THYROXINE (T4) 9.5 UG/DL (4.5-12.0); TROPONIN I < 0.02 NG/ML (< 0.10)
[2019-07-05] MEDS ORDERED: HumuLIN R (REGULAR) INSULIN (NovoLIN R) **100U/ML** PER UNIT IV ONE (19:00)
[2019-07-05] MEDS ORDERED: NS 1,000 ML IV ONE (19:30)
--- NOTE | 2019-07-05 20:07 | REPVR ---
PROCEDURE INFORMATION: Exam: CT Head Without Contrast Exam date and time: 07/05/2019 7:12 PM Age: 88 years old Clinical indication: Altered mental status/memory loss; Additional info: AMS TECHNIQUE: Imaging protocol: Computed tomography of the head without contrast. Radiation optimization: All CT scans at this facility use at least one of these dose optimization techniques: automated exposure control; mA and/or kV adjustment per patient size (includes targeted exams where dose is matched to clinical indication); or iterative reconstruction. COMPARISON: No relevant prior studies available. FINDINGS: Brain: Encephalomalacia in the right frontal lobe. The herman-white differentiation is maintained. No hemorrhage. No edema. There are mild periventricular and subcortical lucencies consistent with chronic microvascular ischemic changes. Ventricles: Normal. No ventriculomegaly. Bones/joints: Unremarkable. No acute fracture. Sinuses: Visualized sinuses are unremarkable. No fluid levels. Mastoid air cells: Visualized mastoid air cells are well aerated. Orbits: Bilateral cataract surgery. Soft tissues: Unremarkable. Vasculature: Vascular calcifications. IMPRESSION: No acute intracranial abnormality. Chronic microvascular ischemic changes. Electronically signed by: Mauricio Barnett On 07/05/2019 20:08:45 PM
[2019-07-05] MEDS ORDERED: GLUCOSE 4 GM CHEW TABLET PO PRN (20:45)
[2019-07-05] MEDS ORDERED: MOM 30ML SUSPENSION UDC PO PRN (20:45)
[2019-07-05] MEDS ORDERED: DEXTROSE 50% 50 ML SYRINGE IV PRN (20:45)
[2019-07-05] MEDS ORDERED: GLUCAGON FOR INJ 1 MG VIAL (J1610) SC PRN (20:45)
[2019-07-05 20:47] LABS: HEMOGLOBIN A1c 11.3 %
--- NOTE | 2019-07-05 20:48 | HPEPDOC ---
[facility] Medical History & Physical Date of Admission Jul 05, 2019 Date of Service: Jul 05, 2019 Primary Care Physician: A Other Provider Ivelisse Parisi Attending Physician: DEAN ESPINOZA MD History and Physical TIME OF SERVICE: 9:30 PM CHIEF COMPLAINT: Brought in by children for evaluation HISTORY OF PRESENT ILLNESS: This is an 88-year-old male who was brought to the ER for evaluation by his children. Apparently, him and his who has Alzheimer's disease have been arguing a lot. The patient has been making homicidal remarks towards both his daughter and his . The patient's family requested placement. The patient reports feeling well in general. He denies having nausea, vomiting, abdominal pain, fevers or chills. He agrees with assessment that he does not along with his and agrees that he prefer not to go back home when his ready for discharge. He admits to feeling down, not having interest in his previous activities, having a poor appetite, and spends most of the day and night sleeping. The patient has multiple medical problems including diabetes and has not taken his medications for about 1 year; he admits to feeling very thirsty and urinating frequently REVIEW OF SYSTEMS: 12 point review of systems negative except as listed in HPI PAST MEDICAL/ SURGICAL HISTORY: Chronic atrial fibrillation Remote history of bradycardia CAD that is post PCI Hypertension. BPH. Dyslipidemia Diabetes CKD Status post appendectomy. Status post cholecystectomy. Status post hernia repair. Status post laminectomy SOCIAL HISTORY: He is a former smoker. He has been residing with his and one of his daughters FAMILY HISTORY: Alzheimer's ALLERGIES: Please see below. HOME MEDICATIONS: Please see below. PHYSICAL EXAMINATION: VITAL SIGNS: Please see below GEN: well-nourished / well developed/ NAD INTEGUMENT: not flushed/ not jaundice HEENT: NCAT / lips acyanotic /mucus membranes dry CVS: RRR/NMRG LUNGS: clear to auscultation bilaterally on room air ABDOMEN: Contour (flat) / soft & not tender with palpation MSK/EXTREMITIES: range of motion intact in all 4 extremities NEURO: CN 2-12 are grossly intact / speech is not dysarthric PSYCH: alert and oriented / able to understand and follow all commands LABORATORY DATA: See below. IMAGING: CT of the head is negative. Chest x-ray appears unremarkable but the final read is pending. MICROBIOLOGY: Please see below. ASSESSMENT: Mr. Perez is an 88-year-old male with a past history of A. fib, CAD, hypertension, BPH, NIDDM, dyslipidemia, and CKD III who is admitted for management of acute hyperglycemia & QUINN on CKD. PLAN: 1. Acute hyperglycemia / IDDM associated with pseudohyponatremia Likely due to noncompliance with meds Plan: diabetic diet / f/u accuchecks & A1C / hypoglycemia protocol / sliding scale insulin / hold oral anti-glycemics / resume detemir 20 units daily 2. QUINN on CKD QUINN is likely due to dehydration in the setting of uncontrolled hyperglycemia His creatinine has increased from a baseline of 1.18 up to 1.71. CPK is unremarkable. An old renal ultrasound done in 2012 was remarkable for BPH; therefore, the CKD may be due to chronic obstructive uropathy Plan: Is/Os, daily weights / IVF / f/u ulytes for FENa or FEUrea / if his renal function does not improve with hydration, the daytime team may consider repeating renal ultrasound / continue tamsulosin 3. Depression with homicidal ideation Plan: Increase dose of sertraline to 75 at night /remote monitoring with Cam- view / Psych consult in the morning 4.Chronic atrial fibrillation For unclear reasons he is not an anticoagulant or rate control. I suspect he may have been noncompliant with any meds His CHADSVASC2 score is 4 Plan: No acute intervention 5. CAD / Dyslipidemia Plan: Continue with Coreg, switch from simvastatin to atorvastatin 6. Chronic Hypertension Plan: Continue with Coreg and isosorbide 7. BPH. Plan: Continue with Finasteride and tamsulosin DVT PROPHYLAXIS: Heparin DISPOSITION: Placement in SNF or NH after more than 2 midnight's stay / PFS consult has been placed Vital Signs Vital Signs Date Time Temp Pulse Resp B/P (MAP) Pulse Ox O2 Delivery O2 Flow Rate FiO2 07/05/19 18:03 Room Air 07/05/19 17:56 50 18 177/77 (110) 92 07/05/19 17:19 99.1 Laboratory Data Labs 24H Laboratory Tests 2 07/05/19 17:50: Estimated Mean Plasma Glucose 278H, Hemoglobin A1c 11.3 07/05/19 18:00: Immature Granulocyte % (Auto) 0.3, Neutrophils (%) (Auto) 70.2H, Lymphocytes (%) (Auto) 16.2L, Monocytes (%) (Auto) 9.5H, Eosinophils (%) (Auto) 3.3H, Basophils (%) (Auto) 0.5, Neutrophils # (Auto) 4.5, Lymphocytes # (Auto) 1.0L, Monocytes # (Auto) 0.6, Eosinophils # (Auto) 0.2, Basophils # (Auto) 0.0, Nucleated Red Bloo d Cells % (auto) 0.0, Prothrombin Time 13.9, Prothromb Time International Ratio 1.09, Anion Gap 8, Glomerular Filtration Rate 40.3, Lactic Acid Level 1.8, Calcium Level 9.5, Total Bilirubin 0.8, Direct Bilirubin 0.2, Aspartate Amino Transf (AST/SGOT) 16, Alanine Aminotransferase (ALT/SGPT) 25, Alkaline Phosphatase 108, Total Creatine Kinase 56, Creatine Kinase MB 2.1, Creatine Kinase MB Relative Index 3.75, Troponin I < 0.02, TH-Nio-R-Type Natriuretic Peptide 2316H, Total Protein 8.0, Albumin 3.9, Albumin/Globulin Ratio 0.95L, Thyroid Stimulating Hormone (TSH) 1.400, Thyroxine (T4) 9.5, Influenza Type A (RT-PCR) NEGATIVE, Influenza Type B (RT-PCR) NEGATIVE 07/05/19 18:08: POC pH (Misc Panel) 7.391, POC Base Excess (Misc Panel) 2.0, POC Saturated Percent O2 (Misc) 92L, POC pO2 (Misc Panel) 65.0L, POC pCO2 (Misc Panel) 44.1, POC HCO3 (Misc Panel) 26.7H, POC Total CO2 (Misc Panel) 28.0H 07/05/19 20:35: Bedside Glucose (Misc Panel) 436H CBC/BMP Laboratory Tests 07/05/19 18:00 Microbiology Microbiology 07/05/19 Blood Culture, Received Pending 07/05/19 Blood Culture, Received Pending Home Medications Scheduled Carvedilol (Carvedilol) 25 Mg Tab, 12.5 MG PO BID Ergocalciferol (Vitamin D2) (Vitamin D2) 50,000 Units Cap, 50,000 UNITS PO 1XWK Finasteride (Finasteride) 5 Mg Tab, 5 MG PO DAILY Insulin Detemir (Levemir Flextouch) 100 Unit/1 Ml Insuln.pen, 20 UNIT SC DAILY Isosorbide Mononitrate (Isosorbide Mononitrate ER) 30 Mg Tab, 30 MG PO QPM Sertraline Hcl (Sertraline HCl) 50 Mg Tab, 50 MG PO QPM Simvastatin (Simvastatin) 40 Mg Tab, 40 MG PO QHS Sitagliptin (Januvia) 50 Mg Tab, 50 MG PO DAILY Tamsulosin HCl (Flomax) 0.4 Mg Cap, 0.4 MG PO QPM Scheduled PRN Acetaminophen (Acetaminophen) 325 Mg Tablet, 650 MG PO Q4H PRN for PAIN Miscellaneous Medications [Patient Comments] PATIENT STATE HE HASN'T TAKEN HIS MEDS IN MONTHS. MEDICATION LIST TAKEN FROM RX BOTTLES THAT FAMILY BROUGHT IN WITH PATIENT. FAMILY NOT AWARE OF WHEN MEDICATIONS LAST TAKEN. Allergies Coded Allergies: gabapentin (Verified Allergy, Unknown, 07/05/19) omeprazole (Verified Allergy, Unknown, 07/05/19) A-FIB/CHADSVASC A-FIB History Current/History of A-Fib/PAF?: Yes Current PO Anticoag Therapy: No Treatment Treatment ordered: Holding Other (not on AC possibly bc of non-compliance) DEAN ESPINOZA MD Jul 05, 2019 20:48
[2019-07-05] MEDS ORDERED: ACET1TAB55 PO (21:05)
[2019-07-05] MEDS ORDERED: LEVE1INJ5 SC (21:05)
[2019-07-05] MEDS ORDERED: PATIENT COMMENTS (21:09)
[2019-07-05 21:41] LABS: APPEARANCE, URINE CLEAR (CLEAR); BACTERIA, URINE AUTO NEGATIVE (NEGATIVE); BILIRUBIN, URINE AUTO NEGATIVE (NEGATIVE); BLOOD, URINE BLOOD NEGATIVE (NEGATIVE); COLOR, URINE YELLOW (YELLOW); GLUCOSE, URINE (UA) AUTO 3+ mg/dL (NEGATIVE); KETONE, URINE AUTO NEGATIVE (NEGATIVE); LEUKOCYTE ESTERASE, URINE AUTO NEGATIVE (NEGATIVE); NITRITE, URINE AUTO NEGATIVE (NEGATIVE); PROTEIN, URINE AUTO NEGATIVE (NEGATIVE); RBC, URINE AUTO 1 /HPF (0-3); SPECIFIC GRAVITY URINE AUTO 1.031 (1.002-1.035); SQUAMOUS EPITHELIAL CELL UR AU 0 /HPF (0-6); UROBILINOGEN, URINE AUTO 0.2 mg/dL (0.0-2.0); WBC, URINE AUTO 1 /HPF (0-3)
[2019-07-05 22:08] LABS: CREATININE,RANDOM URINE 84.7 MG/DL; SODIUM,RANDOM URINE 24 MEQ/L; UREA NITROGEN RANDOM URINE 394 MG/DL
[2019-07-05 23:00] VITALS: BP 141/81
[2019-07-06] MEDS: DOCUSATE SODIUM 100 MG CAP PO SCH ×3 (00:49→21:00)
[2019-07-06] MEDS: HumaLOG INSULIN (NovoLOG) PER UNIT SC SCH ×5 (00:50→21:00)
[2019-07-06] MEDS: HEPARIN SOD (PORCINE) 5000 UNITS/ML VIAL (J1644 PER 1000UNITS) SC SCH ×3 (00:50→21:13)
[2019-07-06] MEDS ORDERED: VITAMIN D 50,000 UNITS CAPSULE (ERGOCALCIFEROL 1.25MG) PO SCH (01:00)
[2019-07-06] MEDS: TAMSULOSIN 0.4 MG CAP PO SCH ×2 (02:07→21:13)
[2019-07-06] MEDS: SERTRALINE HCL 25 MG TABLET PO SCH ×2 (02:07→21:14)
[2019-07-06] MEDS: ATORVASTATIN 20 MG TAB PO SCH ×2 (02:07→21:14)
[2019-07-06] MEDS: ACETAMINOPHEN TAB 650MG DOSE (2X325MG) PO PRN (02:07)
[2019-07-06] MEDS: MAALOX 30 ML SUSP *UDC PO PRN (02:38)
[2019-07-06 05:39] VITALS: BP 153/81
[2019-07-06] MEDS: ONDANSETRON 4 MG TAB (S0181) PO PRN (05:47)
[2019-07-06 06:18] LABS: HEMATOCRIT 42.4 % (42.0-52.0); HEMOGLOBIN 13.9 g/dl (13.5-17.5); MEAN CORPUSCULAR HEMOGLOBIN 30.3 pg (27.0-33.0); MEAN CORPUSCULAR HGB CONC 32.8 g/dl (32.0-36.5); MEAN CORPUSCULAR VOLUME 92.4 fl (80.0-96.0); PLATELET COUNT, AUTOMATED 203 10^3/uL (150-450); RED BLOOD COUNT 4.59 10^6/uL (4.30-6.10)
[2019-07-06 06:42] LABS: CALCIUM LEVEL 9.1 MG/DL (8.8-10.2); CREATININE FOR GFR 1.45 MG/DL (0.70-1.30); GLOMERULAR FILTRATION RATE 48.8 (>35); POTASSIUM SERUM 3.9 MEQ/L (3.5-5.1)
--- NOTE | 2019-07-06 07:31 | REP ---
Portable chest, 05:46 p.m., single AP view with the patient upright: Comparison is the PA and lateral chest dated 11/12/2016. The the The lung jolly are clear except for minor atelectasis inferiorly in the left lung. Cardiac size is normal. The anuja, mediastinum, skeletal structures are unremarkable. There is a pacemaker, unchanged. Impression: Minor atelectasis inferiorly in the left lung. Otherwise, negative portable chest. Electronically Signed by Navid Dunn MD 07/06/2019 07:22 A
[2019-07-06] MEDS: NS 1,000 ML IV SCH ×2 (08:18→18:07)
[2019-07-06] MEDS: FINASTERIDE 5 MG TAB PO SCH (08:19)
[2019-07-06] MEDS: LEVEMIR (INSULIN DETEMIR) 1 UNITS/0.01ML SC SCH (08:19)
[2019-07-06] MEDS: CARVedilol 12.5 MG TAB PO SCH ×2 (08:20→21:14)
--- NOTE | 2019-07-06 12:26 | ECGEPIP ---
[facility] - ED Test Date: 2019-07-05 Pat Name: HUMA TOTH Department: Room: [place] [address] Gender: Male Dramatic Critic: hosea : 1930 Requested By: Sanjana Tabares Order Number: [id number] Reading MD: Agus Roa Measurements Intervals [place] Rate: 58 P: SD: 0 QRS: -83 QRSD: 169 T: 82 QT: 466 QTc: 459 Interpretive Statements ELECTRONIC VENTRICULAR PACEMAKER Electronically Signed on 07-06-2019 12:26:33 EST by Agus Roa
[2019-07-06 14:00] VITALS: BP 128/65
--- NOTE | 2019-07-06 16:26 | IPNPDOC ---
Text Note Date of Service The patient was seen on 07/06/19. NOTE SUBJECTIVE: Mr. Perez is an 88 year old male who was brought into the ED by his children for evaluation. It appears they are requesting placement for him. Mr. Perez is a pleasantly demented, seen laying in bed this morning. Unfortunately, he and his family have a very acrimonious relationship; his of 62 years also has a diagnosis of Alzheimer's Dementia and they have become combative with each other. This morning, he is desperate to talk about the poor conditions at home and spent some time describing it. He had previously told medical staff he wanted to be placed elsewhere; however, he told me the house belongs to him and he wants to go home on d/c. PHYSICAL EXAMINATION: VITAL SIGNS: Please see below General: No acute distress, Alert, frail elderly man Eyes: Normal sclera, EOMI, ILENE HENT: Atraumatic, neck supple, dry mucous membranes Cardiovascular: Normal rate. Distant heart sounds. Pulmonary: Clear to auscultation b/l, no wheezing GI: Soft, nontender, nondistended Skin: Warm and dry Neuro: CN grossly intact. No focal deficits. Strengths equal b/l. Psych: oriented x 3, denied HI/SI LABORATORY DATA: See below. ASSESSMENT: Mr. Perez is an 88-year-old male with a PMHx which includes: A. fib, CAD, hypertension, BPH, NIDDM, dyslipidemia, and CKD III who was admitted for management of acute hyperglycemia & QUINN on CKD. Unfortunately, pt has not taken any of his medications for an unknown period of time. Acute hyperglycemia / IDDM associated with pseudohyponatremia - Likely due to noncompliance with meds - Na 131 - 134 - oral anti-glycemics on hold - FBS 187 this morning - continue with FBS and achs, Detemir 20units qday, ISS with FBS and achs with hypoglycemia protocol - continue diabetic diet QUINN on CKD - QUINN is likely 2/2 dehydration in the setting of uncontrolled hyperglycemia - Cr improved with LRs. Start IV fluid hydration. - Daily BMPs to monitor return to baseline Depression - Medical records have a long history of HI documented; however the pt strenuously denies HI/SI. Home life is extremely contentious per patient. PFS consulted. - Continue with Sertraline 75mg and CamView - Defer psych consult unless mental status deteriorates Mild Leukocytosis - Pt hemodynamically stable, lactic acid WNL, no obvious source of infection - Repeat CBCs and monitor Chronic atrial fibrillation - Pt is not on anticoagulants or rate controlled medications; possibly due to non-compliance with medications - CHADSVASC2 score is 4 - Discuss above with family 5. CAD / Dyslipidemia - Continue with Coreg - Hospitalist stopped Simvastatin; now high intensity Atorvastatin 6. Chronic Hypertension - Continue with Coreg and Isosorbide 7. BPH - Continue with Finasteride and Tamsulosin DVT PROPHYLAXIS: Heparin DISPOSITION: Discussed with PFS - pt declined placement and would like to return home on d/c. Work with pt and family towards this goal. The plan will need to include medication mgmt for chronic diseases. VS,Fishbone, I+O VS, Fishbone, I+O Laboratory Tests 07/05/19 18:00 07/06/19 05:46 Vital Signs Date Time Temp Pulse Resp B/P (MAP) Pulse Ox O2 Delivery O2 Flow Rate FiO2 07/06/19 14:00 97.7 52 17 128/65 (86) 95 Room Air I&O- Last 24 Hours up to 6 AM 07/06/19 06:00 Intake Total 1200 ml Output Total 100 ml Balance 1100 ml Attending Note Attending Note I have reviewed the documentation and assessed the patient independently. I have made necessary revisions as needed. I agree with the findings, assessment and plan stated above. - Patient was seen and examined at the bedside - Hemodynamically stable without any abdominal tenderness - Hyperglycemia has been resolving acute kidney injury has been resolving. We will start IV fluid hydration - We'll send stool for analysis - Will discuss with patient family services for potential placement GEORGIA HERRERA PA-C Jul 06, 2019 16:26 KOLBY HAMMOND MD Jul 06, 2019 18:10
[2019-07-06] MEDS: ISOSORBIDE MON. (IMDUR) 30 MG XR TAB PO SCH (21:14)
[2019-07-06 22:00] VITALS: BP 158/80
[2019-07-07 06:00] VITALS: BP 158/80
[2019-07-07 07:58] LABS: BASO % 0.3 % (0.0-1.0); EOS # 0.2 10^3/uL (0.0-0.5); EOS % 2.7 % (0.0-3.0); HEMATOCRIT 38.7 % (42.0-52.0); HEMOGLOBIN 12.7 g/dl (13.5-17.5); LYMPH # 1.4 10^3/uL (1.5-5.0); LYMPH % 17.6 % (24.0-44.0); MEAN CORPUSCULAR HEMOGLOBIN 30.7 pg (27.0-33.0); MEAN CORPUSCULAR HGB CONC 32.8 g/dl (32.0-36.5); MEAN CORPUSCULAR VOLUME 93.5 fl (80.0-96.0); MONO # 0.6 10^3/uL (0.0-0.8); NEUTROPHILS # 5.7 10^3/uL (1.5-8.5); NEUTROPHILS % 72.1 % (36.0-66.0); PLATELET COUNT, AUTOMATED 214 10^3/uL (150-450); RED BLOOD COUNT 4.14 10^6/uL (4.30-6.10); WHITE BLOOD COUNT 7.9 10^3/uL (4.0-10.0)
[2019-07-07] MEDS: NS 1,000 ML IV SCH (08:15)
[2019-07-07 08:26] LABS: CALCIUM LEVEL 8.8 MG/DL (8.8-10.2); CREATININE FOR GFR 1.32 MG/DL (0.70-1.30); GLOMERULAR FILTRATION RATE 54.4 (>35); MAGNESIUM LEVEL 2.2 MG/DL (1.8-2.4); POTASSIUM SERUM 4.7 MEQ/L (3.5-5.1)
[2019-07-07] MEDS: HumaLOG INSULIN (NovoLOG) PER UNIT SC SCH ×4 (08:26→21:28)
[2019-07-07] MEDS: HEPARIN SOD (PORCINE) 5000 UNITS/ML VIAL (J1644 PER 1000UNITS) SC SCH ×2 (08:29→21:21)
[2019-07-07] MEDS: DOCUSATE SODIUM 100 MG CAP PO SCH ×2 (08:30→21:17)
[2019-07-07] MEDS: LEVEMIR (INSULIN DETEMIR) 1 UNITS/0.01ML SC SCH (08:30)
[2019-07-07] MEDS: CARVedilol 12.5 MG TAB PO SCH ×2 (08:30→21:20)
[2019-07-07] MEDS: FINASTERIDE 5 MG TAB PO SCH (08:30)
[2019-07-07] MEDS ORDERED: FLUBLOK(EGG FREE)(QUAD)INFLUENZA VACC 0.5ML SYRINGE (90682)18YRS&OLDER IM ONE (09:00)
[2019-07-07] MEDS ORDERED: PREVNAR 13 VACCINE SYRINGE (CPT CODE:90670) IM ONE (09:00)
[2019-07-07 14:00] VITALS: BP 129/76
--- NOTE | 2019-07-07 14:42 | IPNPDOC ---
Text Note Date of Service The patient was seen on 07/07/19. NOTE SUBJECTIVE: Mr. Perez is an 88 year old male who was brought into the ED by his children for evaluation. It appears they are requesting placement for him. Pt is seen laying in bed this morning. Again he is able to have a reasonable conversation about the issues and challenges he is facing at home. He wants to return to his home on d/c. PHYSICAL EXAMINATION: VITAL SIGNS: Please see below General: No acute distress, Alert, frail elderly man Eyes: Normal sclera, EOMI, ILENE HENT: Atraumatic, neck supple, dry mucous membranes Cardiovascular: Normal rate. Distant heart sounds. Pulmonary: Clear to auscultation b/l, no wheezing GI: Soft, nontender, nondistended Skin: Warm and dry Neuro: CN grossly intact. No focal deficits. Strengths equal b/l. Psych: oriented x 3, denied HI/SI, possibly a mild cognitive deficit; pt is fully capable of making decisions for himself. LABORATORY DATA: See below. ASSESSMENT: Mr. Perez is an 88-year-old male with a PMHx which includes: A. fib, CAD, hypertension, BPH, NIDDM, dyslipidemia, and CKD III who was admitted for management of acute hyperglycemia & QUINN on CKD. Unfortunately, pt has not taken any of his medications for an unknown period of time. Acute hyperglycemia / IDDM - Likely due to noncompliance with meds - pseudohyponatremia resolved - oral anti-glycemics on hold - Hyperglycemia - improving - continue with FBS and achs, Detemir 20units qday, ISS with FBS and achs with hypoglycemia protocol - continue diabetic diet QUINN on CKD - QUINN is likely 2/2 dehydration in the setting of uncontrolled hyperglycemia - Cr improved with LRs. - with IV fluid hydration - further improved; will discontinue - Daily BMPs to monitor return to baseline Depression - Medical records have a long history of HI documented; however the pt strenuously denies HI/SI. Home life is extremely contentious per patient. PFS consulted to assist with a safe d/c for this pt. - I find him reasonable during examination and his ability to make decisions intact - Continue with Sertraline 75mg and CamView - Defer psych consult unless mental status deteriorates Mild Leukocytosis - Pt hemodynamically stable, lactic acid WNL, no obvious source of infection - Repeat CBCs and monitor - Resolved Chronic atrial fibrillation - Pt is not on anticoagulants or rate controlled medications; possibly due to non-compliance with medications - CHADSVASC2 score is 4 - Discuss above with family 5. CAD / Dyslipidemia - Continue with Coreg and Atorvastatin 6. Chronic Hypertension - Continue with Coreg and Isosorbide 7. BPH - Continue with Finasteride and Tamsulosin DVT PROPHYLAXIS: Heparin DISPOSITION: Discussed with PFS - pt declined placement and would like to return home on d/c. Work with pt and family with his safety and this goal in mind. VS,Fishbone, I+O VS, Fishbone, I+O Laboratory Tests 07/07/19 07:47 Vital Signs Date Time Temp Pulse Resp B/P (MAP) Pulse Ox O2 Delivery O2 Flow Rate FiO2 07/07/19 14:00 98.2 55 17 129/76 (93) 96 Room Air l I&O- Last 24 Hours up to 6 AM 07/07/19 06:00 Intake Total 2600 ml Output Total 850 ml Balance 1750 ml Attending Note Attending Note I have reviewed the documentation and assessed the patient independently. I have made necessary revisions as needed. I agree with the findings, assessment and plan stated above. - Patient was seen and examined at the bedside - Patient currently is hemodynamically stable and afebrile. - Physical without any significant findings - Lab work has shown improvement of hyperglycemia and acute kidney injury - Currently trying to establish a safe discharge plan GEORGIA HERRERA PA-C Jul 07, 2019 14:42 KOLBY HAMMOND MD Jul 07, 2019 18:33
[2019-07-07] MEDS: ATORVASTATIN 20 MG TAB PO SCH (21:17)
[2019-07-07] MEDS: ISOSORBIDE MON. (IMDUR) 30 MG XR TAB PO SCH (21:20)
[2019-07-07] MEDS: TAMSULOSIN 0.4 MG CAP PO SCH (21:20)
[2019-07-07] MEDS: SERTRALINE HCL 25 MG TABLET PO SCH (21:20)
[2019-07-07] MEDS: ACETAMINOPHEN TAB 650MG DOSE (2X325MG) PO PRN (21:21)
[2019-07-07 21:26] VITALS: BP 137/73
[2019-07-08] MEDS: ONDANSETRON 4 MG TAB (S0181) PO PRN (03:25)
[2019-07-08 06:12] VITALS: BP 129/59
[2019-07-08 06:34] LABS: BASO % 0.3 % (0.0-1.0); EOS # 0.1 10^3/uL (0.0-0.5); EOS % 1.3 % (0.0-3.0); HEMATOCRIT 36.7 % (42.0-52.0); LYMPH % 11.2 % (24.0-44.0); MEAN CORPUSCULAR HEMOGLOBIN 30.8 pg (27.0-33.0); MEAN CORPUSCULAR HGB CONC 32.7 g/dl (32.0-36.5); MEAN CORPUSCULAR VOLUME 94.3 fl (80.0-96.0); MONO # 0.9 10^3/uL (0.0-0.8); MONO % 9.8 % (0.0-5.0); NEUTROPHILS % 77.1 % (36.0-66.0); PLATELET COUNT, AUTOMATED 174 10^3/uL (150-450); RED BLOOD COUNT 3.89 10^6/uL (4.30-6.10); WHITE BLOOD COUNT 9.1 10^3/uL (4.0-10.0)
[2019-07-08 06:58] LABS: BLOOD UREA NITROGEN 30 MG/DL (7-18); CALCIUM LEVEL 8.6 MG/DL (8.8-10.2); CARBON DIOXIDE LEVEL 24 MEQ/L (21-32); CHLORIDE LEVEL 103 MEQ/L (98-107); CREATININE FOR GFR 1.17 MG/DL (0.70-1.30); GLOMERULAR FILTRATION RATE > 60.0 (>35); GLUCOSE, FASTING 277 MG/DL (70-100); POTASSIUM SERUM 4.8 MEQ/L (3.5-5.1); SODIUM LEVEL 133 MEQ/L (136-145)
[2019-07-08] MEDS: HumaLOG INSULIN (NovoLOG) PER UNIT SC SCH ×4 (07:52→21:22)
[2019-07-08] MEDS: FINASTERIDE 5 MG TAB PO SCH (08:19)
[2019-07-08] MEDS: DOCUSATE SODIUM 100 MG CAP PO SCH ×2 (08:19→21:21)
[2019-07-08] MEDS: CARVedilol 12.5 MG TAB PO SCH ×2 (08:20→21:21)
[2019-07-08] MEDS: HEPARIN SOD (PORCINE) 5000 UNITS/ML VIAL (J1644 PER 1000UNITS) SC SCH ×2 (08:21→21:22)
[2019-07-08] MEDS: LEVEMIR (INSULIN DETEMIR) 1 UNITS/0.01ML SC SCH (08:21)
[2019-07-08 09:20] VITALS: BP 120/55
[2019-07-08 09:26] VITALS: BP 120/50
--- NOTE | 2019-07-08 11:57 | REP ---
Left knee five views: There is demineralization. 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 There is a small joint effusion. There is no fracture or dislocation. Electronically Signed by Navid Dunn MD 07/08/2019 11:48 A
--- NOTE | 2019-07-08 15:44 | MHCRPDOC ---
[facility] Consultation Consultation DATE OF CONSULTATION: 07/08/19 CONSULTATION REQUESTED BY: Dr. Griffin REASON FOR CONSULTATION: capacity RELEVANT HISTORY: Per medical admit note: "This is an 88-year-old male who was brought to the ER for evaluation by his children. Apparently, him and his who has Alzheimer's disease have been arguing a lot. The patient has been making homicidal remarks towards both his daughter and his . The patient's family requested placement. The patient reports feeling well in general. He denies having nausea, vomiting, abdominal pain, fevers or chills. He agrees with assessment that he does not along with his and agrees that he prefer not to go back home when his ready for discharge. He admits to feeling down, not having interest in his previous activities, having a poor appetite, and spends most of the day and night sleeping. The patient has multiple medical problems including diabetes and has not taken his medications for about 1 year; he admits to feeling very thirsty and urinating frequently. Pt seen and states he feels alright. Asked if he knew why he was here and states he thinks he was having anxiety. States his is always yelling at him b/c she has memory problems pointing to his head. Also states states his told his daughter to stop buying his medication which is why he stopped them but is unable to state that that is why he's here, is only aware he has BPH and takes Flomax. Asked pt if he was aware his and daughter feel he needs placement in an [facility] or [place] and that states his needs placement but was not definite about whether he wanted placement or not and seemed to become confused by the question. He admits he gets confused at times and did admit to being unable to answer some of my questions during MMSE.. Asked he ever gets confused at night here or at home and he denies he does but then states he's and daughter tell him he gets confused and agitated at night at home which he denies he remembers. Agreeable thought with seroquel 50mg bid for prevention on confusion/agiation/insomnia. Denies SI/HI, hallucinations, delusions. Feels safe here. PAST PSYCHIATRIC HISTORY: Alzheimer's dementia PAST MEDICAL HISTORY: Chronic atrial fibrillation Remote history of bradycardia CAD that is post PCI Hypertension. BPH. Dyslipidemia Diabetes CKD Status post appendectomy. Status post cholecystectomy. Status post hernia repair. Status post laminectomy dementia/Alzheimer's FAMILY HISTORY: Alzheimer's PERSONAL AND SOCIAL HISTORY: Resides in: [place] with his and daughters Marital Status: M Children: grown children Employment: retired SUBSTANCE ABUSE HISTORY: Smoking: former use LEGAL HISTORY: . 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 The herman-white differentiation is maintained. No hemorrhage. No edema. There are mild periventricular and subcortical lucencies consistent with chronic microvascular ischemic changes. Ventricles: Normal. No ventriculomegaly. Bones/joints: Unremarkable. No acute fracture. Sinuses: Visualized sinuses are unremarkable. No fluid levels. Mastoid air cells: Visualized mastoid air cells are well aerated. Orbits: Bilateral cataract surgery. Soft tissues: Unremarkable. Vasculature: Vascular calcifications. MENTAL STATUS EXAMINATION: Patient is a 88 year old male, who is sitting in a chair in hospital gown. Speech is reg, rate, rhythm Language skills are good Thought processes including: mildly circumferential and tangential as asked question which he starts to answer then starts talking about his and daughter at length Thought content: denies SI/HI, hallucinations, delusions Abstract reasoning, and computation: limited due to poor memory Description of associations: limited Description of abnormal or psychotic thoughts: denies Judgment: poor Insight: poor Orientation to x3 but not situation Recent and remote memory: MMSE = 23 unable to spell world backwards, tell me a s entence, recall 2 objects Attention span and concentration: fair Language: appropriate Fund of knowledge: limited by poor memory Mood: euthymic Affect: congruent to mood DIAGNOSIS: 1. Cognitive D/O - R/O Vascular (based on head CT) vs Alzheimer's dementia PLAN: 1.Pt lacks capacity as doesn't know why he's here, what he gets treatment for (medical problems), what all his meds are, unable to state if he is agreeable or not to placement, and easily confused by questions at times. 2. Seroquel 50mg bid for confusion/agitation Vital Signs Vital Signs Date Time Temp Pulse Resp B/P (MAP) Pulse Ox O2 Delivery O2 Flow Rate FiO2 07/08/19 09:26 98.7 56 22 120/50 94 Room Air Laboratory Data 24H Labs Laboratory Tests 2 07/07/19 16:40: Bedside Glucose (Misc Panel) 238H 2/4/20 21:24: Bedside Glucose (Misc Panel) 323H 07/08/19 06:17: Immature Granulocyte % (Auto) 0.3, Neutrophils (%) (Auto) 77.1H, Lymphocytes (%) (Auto) 11.2L, Monocytes (%) (Auto) 9.8H, Eosinophils (%) (Auto) 1.3, Basophils (%) (Auto) 0.3, Neutrophils # (Auto) 7.0, Lymphocytes # (Auto) 1.0L, Monocytes # (Auto) 0.9H, Eosinophils # (Auto) 0.1, Basophils # (Auto) 0.0, Nucleated Red Blood Cells % (auto) 0.0, Anion Gap 6L, Glomerular Filtration Rate > 60.0, Calcium Level 8.6L, Magnesium Level 2.0 07/08/19 11:50: Bedside Glucose (Misc Panel) 299H Home Medications Current Medications Current Medications Medications (Trade) Dose Ordered Sig/Iliana Route PRN Reason Start Time Stop Time Status Last Admin Dose Admin Acetaminophen (Tylenol Tab) 650 mg Q4H PRN PO PAIN OR FEVER 07/05/19 20:45 07/07/19 21:21 Al Hydrox/Mg Hydrox/Simethicone (Mylanta) 30 ml DAILY PRN PO DYSPEPSIA 07/05/19 20:45 07/06/19 02:38 Atorvastatin Calcium (Lipitor) 20 mg QHS PO 07/05/19 21:00 07/07/19 21:17 Carvedilol (COReg) 12.5 mg BID PO 07/06/19 09:00 07/08/19 08:20 Dextrose (Dextrose 50%) 25 ml ASDIRECTED PRN IV SEE LABEL COMMENTS 07/05/19 20:45 Docusate Sodium (Colace) 100 mg BID PO 07/05/19 21:00 07/08/19 08:19 Finasteride (Proscar) 5 mg DAILY PO 07/06/19 09:00 07/08/19 08:19 Glucagon (Glucagon) 1 mg ASDIRECTED PRN SC SEE LABEL COMMENTS 07/05/19 20:45 Glucose (Glucose) 16 GM ASDIRECTED PRN PO SEE LABEL COMMENTS 07/05/19 20:45 Heparin Sodium (Porcine) (Heparin) 5,000 units Q12H SC 07/05/19 21:00 07/08/19 08:21 Home Med (Med Rec Complete!) ASDIRECTED XX 07/05/19 21:15 07/05/19 21:15 DC Insulin Detemir (Levemir Insulin) 20 units DAILY SC 07/06/19 09:00 07/08/19 08:21 Insulin Human Lispro (HumaLOG INSULIN) See Protocol Table AC SC 07/06/19 07:30 07/08/19 12:31 Insulin Human Lispro (HumaLOG INSULIN) See Protocol Table QHS SC 07/05/19 21:00 07/07/19 21:28 Isosorbide Mononitrate (Imdur) 30 mg QPM PO 07/06/19 21:00 07/07/19 21:20 Magnesium Hydroxide (Milk Of Magnesia) 30 ml DAILY PRN PO CONSTIPATION 07/05/19 20:45 Ondansetron HCl (Zofran) 4 mg Q12HP PRN PO NAUSEA 07/06/19 05:45 07/08/19 03:25 Sertraline HCl (Zoloft) 75 mg QPM PO 07/05/19 21:00 07/07/19 21:20 Sodium Chloride 1,000 ml @ 80 mls/hr [id number] IV 07/06/19 07:15 07/07/19 17:20 DC 07/06/19 18:07 Tamsulosin HCl (Flomax) 0.4 mg QPM PO 07/05/19 21:00 07/07/19 21:20 Vitamin D (Drisdol) 50,000 units ASDIRECTED PO 07/06/19 01:00 07/06/19 05:36 DC Scheduled Carvedilol (Carvedilol) 25 Mg Tab, 12.5 MG PO BID, (Reported) Ergocalciferol (Vitamin D2) (Vitamin D2) 50,000 Units Cap, 50,000 UNITS PO 1XWK, (Reported) Finasteride (Finasteride) 5 Mg Tab, 5 MG PO DAILY, (Reported) Insulin Detemir (Levemir Flextouch) 100 Unit/1 Ml Insuln.pen, 20 UNIT SC DAILY, (Reported) Isosorbide Mononitrate (Isosorbide Mononitrate ER) 30 Mg Tab, 30 MG PO QPM, (Reported) Sertraline Hcl (Sertraline HCl) 50 Mg Tab, 50 MG PO QPM, (Reported) Simvastatin (Simvastatin) 40 Mg Tab, 40 MG PO QHS, (Reported) Sitagliptin (Januvia) 50 Mg Tab, 50 MG PO DAILY, (Reported) Tamsulosin HCl (Flomax) 0.4 Mg Cap, 0.4 MG PO QPM, (Reported) Scheduled PRN Acetaminophen (Acetaminophen) 325 Mg Tablet, 650 MG PO Q4H PRN for PAIN, (Reported) Miscellaneous Medications [Patient Comments] , (Reported) PATIENT STATE HE HASN'T TAKEN HIS MEDS IN MONTHS. MEDICATION LIST TAKEN FROM RX BOTTLES THAT FAMILY BROUGHT IN WITH PATIENT. FAMILY NOT AWARE OF WHEN MEDICATIONS LAST TAKEN. Allergies Coded Allergies: gabapentin (Verified Allergy, Unknown, 07/05/19) omeprazole (Verified Allergy, Unknown, 07/05/19) CLEMENTE FERRARI DO Jul 08, 2019 2:24 pm
[2019-07-08] MEDS ORDERED: ANALGESIC BALM CRM 120 GM TOP PRN (16:15)
--- NOTE | 2019-07-08 16:25 | IPNPDOC ---
Text Note Date of Service The patient was seen on 07/08/19. NOTE SUBJECTIVE: Mr. Perez is an 88 year old male who was brought into the ED by his children for evaluation. His family is requesting placement for him. Pt is seen laying in bed this afternoon. Pt stated pain in his L knee kept him awake last night. He uses Aspercreme at home prn and it reduces the pain significantly within minutes. He also reported he has had a cough since [place] with very thick mucus; he feels as if the mucus gets stuck in his throat sometimes. He has left a sample of the thick mucus in the room. PHYSICAL EXAMINATION: VITAL SIGNS: Please see below General: No acute distress, Alert, frail elderly man Eyes: Normal sclera, EOMI, ILENE HENT: Atraumatic, neck supple, dry mucous membranes Cardiovascular: Normal rate. Distant heart sounds. Pulmonary: wheezing, mildly diminished b/l lower bases GI: Soft, nontender, nondistended Skin: Warm and dry Neuro: CN grossly intact. No focal deficits. Psych: oriented x 3, denied HI/SI, possibly a mild cognitive deficit; pt is fully capable of making decisions for himself. LABORATORY DATA: See below. ASSESSMENT: Mr. Perez is an 88-year-old male with a PMHx which includes: A. fib, CAD, h ypertension, BPH, NIDDM, dyslipidemia, and CKD III who was admitted for management of acute hyperglycemia & QUINN on CKD. Unfortunately, pt has not taken any of his medications for an unknown period of time. Acute hyperglycemia / IDDM - Likely due to noncompliance with meds - pseudohyponatremia resolved - oral anti-glycemics on hold - Hyperglycemia - improving - continue with FBS and achs, Detemir 20units qday, ISS with FBS and achs with hypoglycemia protocol - continue diabetic diet QUINN on CKD - resolved Cognitive limitations - Assessed by speech therapy; found to have a severe cognitive impairment - Recommendations include daily supervision and assistance, cognitive therapy for safe d/c - Continue to work with pt and family towards a safe d/c Depression - Medical records have a long history of HI documented; however the pt strenuously denies HI/SI. Home life is extremely contentious per patient. Family have talked with PFS and also reported a contentious home life. They have requested a psych consult for the pt due to extreme nighttime Sx, possible Alz/Dementia. - Psychiatry on consult. - I find him reasonable during examination and his ability to make decisions intact - Continue with Sertraline 75mg and CamView Mild Leukocytosis - Resolved Chronic atrial fibrillation - Pt is not on anticoagulants or rate controlled medications; possibly due to non-compliance with medications - CHADSVASC2 score is 4 5. CAD / Dyslipidemia - Continue with Coreg and Atorvastatin 6. Chronic Hypertension - Continue with Coreg and Isosorbide 7. BPH - Continue with Finasteride and Tamsulosin DVT PROPHYLAXIS: Heparin DISPOSITION: Discussed with PFS - pt declined placement and would like to return home on d/c. Work with pt and family with his safety and this goal in mind. VS,Fishbone, I+O VS, Fishbone, I+O Laboratory Tests 07/08/19 06:17 Vital Signs Date Time Temp Pulse Resp B/P (MAP) Pulse Ox O2 Delivery O2 Flow Rate FiO2 07/08/19 09:26 98.7 56 22 120/50 94 Room Air I&O- Last 24 Hours up to 6 AM 07/08/19 06:00 Intake Total 1980 ml Output Total 925 ml Balance 1055 ml Attending Note Attending Note I have reviewed the documentation and assessed the patient independently. I have made necessary revisions as needed. I agree with the findings, assessment and plan stated above. - Patient was seen and examined at the bedside - Currently has no new complaints - Lab work has resolved - Patient a cognitive evaluation completed and revealed significant cognitive impairment - Patient was subsequently evaluated by psychiatry; psychiatry recommendation was for cervical and have noted the patient lacks capacity - Patient will need to have a healthcare proxy help determine disposition; either home with services versus custodial placement GEORGIA HERRERA PA-C Jul 08, 2019 16:25 KOLBY HAMMOND MD Jul 08, 2019 18:03
[2019-07-08] MEDS: ACETAMINOPHEN TAB 650MG DOSE (2X325MG) PO SCH ×2 (17:18→21:20)
[2019-07-08 19:54] VITALS: BP 153/76
[2019-07-08] MEDS: ISOSORBIDE MON. (IMDUR) 30 MG XR TAB PO SCH (21:21)
[2019-07-08] MEDS: TAMSULOSIN 0.4 MG CAP PO SCH (21:21)
[2019-07-08] MEDS: ATORVASTATIN 20 MG TAB PO SCH (21:21)
[2019-07-08] MEDS: QUEtiapine FUMARATE 50 MG TAB PO SCH (21:21)
[2019-07-08] MEDS: SERTRALINE HCL 25 MG TABLET PO SCH (21:21)
[2019-07-09 05:55] VITALS: BP 114/65
[2019-07-09 06:39] LABS: BASO % 0.3 % (0.0-1.0); EOS # 0.3 10^3/uL (0.0-0.5); HEMATOCRIT 37.2 % (42.0-52.0); LYMPH % 16.6 % (24.0-44.0); MEAN CORPUSCULAR HEMOGLOBIN 30.5 pg (27.0-33.0); MEAN CORPUSCULAR HGB CONC 32.3 g/dl (32.0-36.5); MEAN CORPUSCULAR VOLUME 94.7 fl (80.0-96.0); MONO # 0.8 10^3/uL (0.0-0.8); MONO % 12.1 % (0.0-5.0); NEUTROPHILS # 4.1 10^3/uL (1.5-8.5); NEUTROPHILS % 66.7 % (36.0-66.0); PLATELET COUNT, AUTOMATED 157 10^3/uL (150-450); RED BLOOD COUNT 3.93 10^6/uL (4.30-6.10); WHITE BLOOD COUNT 6.2 10^3/uL (4.0-10.0)
[2019-07-09 07:02] LABS: BLOOD UREA NITROGEN 22 MG/DL (7-18); CALCIUM LEVEL 9.1 MG/DL (8.8-10.2); CARBON DIOXIDE LEVEL 29 MEQ/L (21-32); CHLORIDE LEVEL 106 MEQ/L (98-107); CREATININE FOR GFR 1.13 MG/DL (0.70-1.30); GLOMERULAR FILTRATION RATE > 60.0 (>35); GLUCOSE, FASTING 181 MG/DL (70-100); MAGNESIUM LEVEL 2.2 MG/DL (1.8-2.4); POTASSIUM SERUM 4.4 MEQ/L (3.5-5.1); SODIUM LEVEL 138 MEQ/L (136-145)
[2019-07-09] MEDS: FINASTERIDE 5 MG TAB PO SCH (08:06)
[2019-07-09] MEDS: DOCUSATE SODIUM 100 MG CAP PO SCH ×2 (08:06→21:06)
[2019-07-09] MEDS: ACETAMINOPHEN TAB 650MG DOSE (2X325MG) PO SCH ×3 (08:07→21:10)
[2019-07-09] MEDS: CARVedilol 12.5 MG TAB PO SCH ×2 (08:07→21:08)
[2019-07-09] MEDS: QUEtiapine FUMARATE 50 MG TAB PO SCH (08:07)
[2019-07-09] MEDS: LEVEMIR (INSULIN DETEMIR) 1 UNITS/0.01ML SC SCH (08:08)
[2019-07-09] MEDS: HEPARIN SOD (PORCINE) 5000 UNITS/ML VIAL (J1644 PER 1000UNITS) SC SCH ×2 (08:08→21:06)
[2019-07-09] MEDS: HumaLOG INSULIN (NovoLOG) PER UNIT SC SCH ×4 (08:08→21:00)
--- NOTE | 2019-07-09 12:30 | REP ---
AP and lateral chest, patient sitting: Comparison is 07/05/2019. The minor atelectasis inferiorly in the left lung on the comparison study has resolved. The lung jolly are clear. Cardiac size is normal. The anuja, mediastinum, skeletal structures are unremarkable. There is a pacemaker, unchanged. Impression: No acute cardiopulmonary findings. Pacemaker. Electronically Signed by Navid Dunn MD 07/09/2019 12:21 P
--- NOTE | 2019-07-09 13:37 | IPNPDOC ---
Text Note Date of Service The patient was seen on 07/09/19. NOTE SUBJECTIVE: Mr. Perez is an 88 year old male who was brought into the ED by his children for evaluation. His family is requesting placement for him. Pt is seen laying in bed morning. He is pleasant and conversant. Pt continues to cough; he reported the mucus is even more prominent this morning. Pt noted cough was a problem for him over [place], resolved and has returned. Pt also continues to experience arthritic pain - he reported that Tylenol and Aspercreme relieves the pain. Nursing reported pt complained of drowsiness and blurred vision. Upon re-assessment, pt stated that he has had to squint to see the TV this morning, otherwise he sees 2 of everything. PHYSICAL EXAMINATION: VITAL SIGNS: Please see below General: No acute distress, Alert, frail elderly man Eyes: Normal sclera, EOMI, ILENE, HENT: Atraumatic, neck supple, dry mucous membranes Cardiovascular: Normal rate. Distant heart sounds. Pulmonary: wheezing, diminished lung sounds b/l lower bases GI: Soft, nontender, nondistended Skin: Warm and dry Neuro: CN grossly intact. No focal deficits. Psych: oriented x 3 LABORATORY DATA: See below. ASSESSMENT: Mr. Perez is an 88-year-old male with a PMHx which includes: A. fib, CAD, hypertension, BPH, NIDDM, dyslipidemia, and CKD III who was admitted for management of acute hyperglycemia & QUINN on CKD. Unfortunately, pt has not taken any of his medications for an unknown period of time. Acute hyperglycemia / IDDM - Likely due to noncompliance with meds - pseudohyponatremia resolved - oral anti-glycemics on hold - Hyperglycemia - improving - continue with FBS and achs, Detemir 20units qday, ISS with FBS and achs with hypoglycemia protocol - continue diabetic diet Cognitive limitations - Dx: severe cognitive impairment - Recommendations include daily supervision and assistance, cognitive therapy for safe d/c - Continue to work with pt and family towards a safe d/c - placement Depression, started Seroquel, developed blurred vision - Medical records have a long history of HI documented; however the pt stre nuously denies HI/SI. Home life is extremely contentious per patient. Family have talked with PFS and also reported a contentious home life. They have requested a psych consult for the pt due to extreme nighttime Sx at home, possible Alz/Dementia. - Psychiatry on consult; Assessment - vascular dementia vs Alz. Dementia. Dr. Grant started Seroquel - d/c Seroquel d/t new reports of blurred vision Cough - Worsening - Preliminary gram stain = many g-ve cocci, few g+ve cocci - CXR - pending - Start Guaifenesin Chronic atrial fibrillation - Pt is not on anticoagulants or rate controlled medications; possibly due to non-compliance with medications - CHADSVASC2 score is 4 CAD / Dyslipidemia - Continue with Coreg and Atorvastatin Chronic Hypertension - Continue with Coreg and Isosorbide BPH - Continue with Finasteride and Tamsulosin QUINN on CKD - resolved DVT PROPHYLAXIS: Heparin DISPOSITION: Work with Patient, family and PFS towards a safe d/c VS,Fishbone, I+O VS, Fishbone, I+O Laboratory Tests 07/09/19 06:13 Vital Signs Date Time Temp Pulse Resp B/P (MAP) Pulse Ox O2 Delivery O2 Flow Rate FiO2 07/09/19 08:07 67 114/65 07/09/19 05:55 98.6 18 95 Room Air I&O- Last 24 Hours up to 6 AM 07/09/19 06:00 Intake Total 1320 ml Output Total 1050 ml Balance 270 ml GEORGIA HERRERA PA-C Jul 09, 2019 13:10
[2019-07-09] MEDS: guaiFENesin 200 MG TAB PO SCH ×2 (13:39→17:47)
[2019-07-09] MEDS: ATORVASTATIN 20 MG TAB PO SCH (21:08)
[2019-07-09] MEDS: TAMSULOSIN 0.4 MG CAP PO SCH (21:08)
[2019-07-09] MEDS: SERTRALINE HCL 25 MG TABLET PO SCH (21:09)
[2019-07-09] MEDS: ISOSORBIDE MON. (IMDUR) 30 MG XR TAB PO SCH (21:09)
[2019-07-10] MEDS: guaiFENesin 200 MG TAB PO SCH ×4 (00:15→16:54)
[2019-07-10 06:00] VITALS: BP 115/60
[2019-07-10 07:19] LABS: BASO % 0.3 % (0.0-1.0); EOS # 0.2 10^3/uL (0.0-0.5); EOS % 2.3 % (0.0-3.0); HEMATOCRIT 37.8 % (42.0-52.0); HEMOGLOBIN 12.1 g/dl (13.5-17.5); LYMPH % 10.4 % (24.0-44.0); MEAN CORPUSCULAR HEMOGLOBIN 30.7 pg (27.0-33.0); MEAN CORPUSCULAR VOLUME 95.9 fl (80.0-96.0); MONO % 10.4 % (0.0-5.0); NEUTROPHILS # 7.1 10^3/uL (1.5-8.5); NEUTROPHILS % 76.2 % (36.0-66.0); PLATELET COUNT, AUTOMATED 164 10^3/uL (150-450); RED BLOOD COUNT 3.94 10^6/uL (4.30-6.10); WHITE BLOOD COUNT 9.3 10^3/uL (4.0-10.0)
[2019-07-10 07:39] LABS: BLOOD UREA NITROGEN 24 MG/DL (7-18); CALCIUM LEVEL 8.8 MG/DL (8.8-10.2); CARBON DIOXIDE LEVEL 26 MEQ/L (21-32); CHLORIDE LEVEL 105 MEQ/L (98-107); CREATININE FOR GFR 1.21 MG/DL (0.70-1.30); GLOMERULAR FILTRATION RATE > 60.0 (>35); GLUCOSE, FASTING 298 MG/DL (70-100); MAGNESIUM LEVEL 2.1 MG/DL (1.8-2.4); POTASSIUM SERUM 5.1 MEQ/L (3.5-5.1); SODIUM LEVEL 136 MEQ/L (136-145)
[2019-07-10] MEDS: HumaLOG INSULIN (NovoLOG) PER UNIT SC SCH ×4 (09:03→20:57)
[2019-07-10] MEDS: HEPARIN SOD (PORCINE) 5000 UNITS/ML VIAL (J1644 PER 1000UNITS) SC SCH ×2 (09:04→20:56)
[2019-07-10] MEDS: ACETAMINOPHEN TAB 650MG DOSE (2X325MG) PO SCH ×3 (09:04→20:59)
[2019-07-10] MEDS: FINASTERIDE 5 MG TAB PO SCH (09:04)
[2019-07-10] MEDS: DOCUSATE SODIUM 100 MG CAP PO SCH ×2 (09:04→20:58)
[2019-07-10] MEDS: LEVEMIR (INSULIN DETEMIR) 1 UNITS/0.01ML SC SCH (09:05)
[2019-07-10] MEDS: CARVedilol 12.5 MG TAB PO SCH ×2 (09:07→20:57)
[2019-07-10] MEDS ORDERED: AUGMENTIN 875 MG TAB PO SCH (10:00)
[2019-07-10] MEDS: AUGMENTIN 875 MG TAB PO SCH ×2 (11:44→20:58)
--- NOTE | 2019-07-10 17:46 | IPNPDOC ---
Text Note Date of Service The patient was seen on 07/10/19. NOTE SUBJECTIVE: Mr. Perez is an 88 year old male who was brought into the ED by his children for evaluation. His family is requesting placement for him. Pt is seen sitting up in bed this morning. His blurred vision has resolved. Pt reported a cough that is getting worse, he has throat pain and is concerned that he is coughing up copious amounts of thick, green mucus, worse now. Pt denied fever, chills, night sweats, shortness of breath. He doesn't feel very well this morning though. PHYSICAL EXAMINATION: VITAL SIGNS: Please see below General: No acute distress, Alert, frail elderly man Eyes: Normal sclera, EOMI, ILENE, HENT: Atraumatic, neck supple, pharynx inflamed, thick, purulent mucus present Cardiovascular: Normal rate. Distant heart sounds. Pulmonary: wheezing, diminished lung sounds b/l lower bases, very productive cough, thick purulent mucus GI: Soft, nontender, nondistended Skin: Warm and dry Neuro: CN grossly intact. No focal deficits. Psych: oriented x 3 LABORATORY DATA: See below. ASSESSMENT: Mr. Perez is an 88-year-old male with a PMHx which includes: A. fib, CAD, hypertension, BPH, NIDDM, dyslipidemia, and CKD III who was admitted for management of acute hyperglycemia & QUINN on CKD. Unfortunately, pt has not taken any of his medications for an unknown period of time. Acute hyperglycemia / IDDM - Likely due to noncompliance with meds - pseudohyponatremia resolved - oral anti-glycemics on hold - Hyperglycemia - improving - continue with FBS and achs, Detemir 20units qday, ISS with FBS and achs with hypoglycemia protocol - continue diabetic diet Cognitive limitations - Dx: severe cognitive impairment - Recommendations include daily supervision and assistance, cognitive therapy for safe d/c - Continue to work with pt and family towards a safe d/c - placement Depression, started Seroquel, developed blurred vision - Medical records have a long history of HI documented; however the pt strenuously denies HI/SI. Home life is extremely contentious per patient. Family have talked with PFS and also reported a contentious home life. They have requested a psych consult for the pt due to extreme nighttime Sx at home, possible Alz/Dementia. - Psychiatry on consult; Assessment - vascular dementia vs Alz. Dementia. Dr. Grant started Seroquel - d/c Seroquel d/t new reports of blurred vision Acute bacterial bronchitis - Worsening - Gram Stain & culture +ve for M. catarrhalis - Continue Guafenesin, start Augmentin BID x 5 d. - Throat lozenges prn sore throat Chronic atrial fibrillation - Pt is not on anticoagulants or rate controlled medications; possibly due to non-compliance with medications - CHADSVASC2 score is 4 CAD / Dyslipidemia - Continue with Coreg and Atorvastatin Chronic Hypertension - Continue with Coreg and Isosorbide BPH - Continue with Finasteride and Tamsulosin QUINN on CKD - resolved DVT PROPHYLAXIS: Heparin DISPOSITION: Work with Patient, family and PFS towards a safe d/c. Now ALC VS,Fishbone, I+O VS, Fishbone, I+O Laboratory Tests 07/10/19 07:00 Vital Signs Date Time Temp Pulse Resp B/P (MAP) Pulse Ox O2 Delivery O2 Flow Rate FiO2 07/10/19 09:07 61 128/68 07/10/19 06:00 98.2 18 94 Room Air I&O- Last 24 Hours up to 6 AM 07/10/19 06:00 Intake Total 1680 ml Output Total 1700 ml Balance -20 ml GEORGIA HERRERA PA-C Jul 10, 2019 17:46
[2019-07-10] MEDS: SERTRALINE HCL 25 MG TABLET PO SCH (20:57)
[2019-07-10] MEDS: TAMSULOSIN 0.4 MG CAP PO SCH (20:58)
[2019-07-10] MEDS: ISOSORBIDE MON. (IMDUR) 30 MG XR TAB PO SCH (20:58)
[2019-07-10] MEDS: ATORVASTATIN 20 MG TAB PO SCH (20:58)
[2019-07-11] MEDS: guaiFENesin 200 MG TAB PO SCH ×4 (01:05→17:30)
[2019-07-11 06:00] VITALS: BP 102/57
[2019-07-11 06:51] LABS: BASO % 0.3 % (0.0-1.0); EOS # 0.4 10^3/uL (0.0-0.5); EOS % 5.8 % (0.0-3.0); HEMATOCRIT 38.3 % (42.0-52.0); HEMOGLOBIN 11.9 g/dl (13.5-17.5); LYMPH # 1.1 10^3/uL (1.5-5.0); LYMPH % 17.4 % (24.0-44.0); MEAN CORPUSCULAR HGB CONC 31.1 g/dl (32.0-36.5); MEAN CORPUSCULAR VOLUME 96.5 fl (80.0-96.0); MONO # 0.7 10^3/uL (0.0-0.8); MONO % 10.8 % (0.0-5.0); NEUTROPHILS # 4.2 10^3/uL (1.5-8.5); NEUTROPHILS % 65.5 % (36.0-66.0); PLATELET COUNT, AUTOMATED 189 10^3/uL (150-450); RED BLOOD COUNT 3.97 10^6/uL (4.30-6.10); WHITE BLOOD COUNT 6.4 10^3/uL (4.0-10.0)
[2019-07-11 07:05] LABS: BLOOD UREA NITROGEN 24 MG/DL (7-18); CALCIUM LEVEL 8.6 MG/DL (8.8-10.2); CARBON DIOXIDE LEVEL 27 MEQ/L (21-32); CHLORIDE LEVEL 106 MEQ/L (98-107); CREATININE FOR GFR 1.05 MG/DL (0.70-1.30); GLOMERULAR FILTRATION RATE > 60.0 (>35); GLUCOSE, FASTING 210 MG/DL (70-100); MAGNESIUM LEVEL 2.1 MG/DL (1.8-2.4); POTASSIUM SERUM 4.8 MEQ/L (3.5-5.1); SODIUM LEVEL 138 MEQ/L (136-145)
[2019-07-11] MEDS: HumaLOG INSULIN (NovoLOG) PER UNIT SC SCH ×4 (08:35→21:00)
[2019-07-11] MEDS: ACETAMINOPHEN TAB 650MG DOSE (2X325MG) PO SCH ×3 (08:36→21:34)
[2019-07-11] MEDS: DOCUSATE SODIUM 100 MG CAP PO SCH ×2 (08:37→21:35)
[2019-07-11] MEDS: AUGMENTIN 875 MG TAB PO SCH ×2 (08:38→21:34)
[2019-07-11] MEDS: CARVedilol 12.5 MG TAB PO SCH ×2 (08:38→21:35)
[2019-07-11] MEDS: FINASTERIDE 5 MG TAB PO SCH (08:38)
[2019-07-11] MEDS: HEPARIN SOD (PORCINE) 5000 UNITS/ML VIAL (J1644 PER 1000UNITS) SC SCH ×2 (08:39→21:33)
[2019-07-11] MEDS: LEVEMIR (INSULIN DETEMIR) 1 UNITS/0.01ML SC SCH (08:39)
[2019-07-11 14:00] VITALS: BP 140/73
[2019-07-11] MEDS: ISOSORBIDE MON. (IMDUR) 30 MG XR TAB PO SCH (21:34)
[2019-07-11] MEDS: ATORVASTATIN 20 MG TAB PO SCH (21:34)
[2019-07-11] MEDS: TAMSULOSIN 0.4 MG CAP PO SCH (21:35)
[2019-07-11] MEDS: SERTRALINE HCL 25 MG TABLET PO SCH (21:35)
[2019-07-11 22:00] VITALS: BP 145/89
[2019-07-12] MEDS: guaiFENesin 200 MG TAB PO SCH ×4 (00:23→17:09)
[2019-07-12 05:00] VITALS: BP 105/69
[2019-07-12] MEDS: HumaLOG INSULIN (NovoLOG) PER UNIT SC SCH ×4 (07:30→21:00)
[2019-07-12 07:52] LABS: BASO % 0.6 % (0.0-1.0); EOS # 0.4 10^3/uL (0.0-0.5); EOS % 6.1 % (0.0-3.0); HEMATOCRIT 40.3 % (42.0-52.0); HEMOGLOBIN 12.4 g/dl (13.5-17.5); LYMPH # 1.2 10^3/uL (1.5-5.0); LYMPH % 16.9 % (24.0-44.0); MEAN CORPUSCULAR HEMOGLOBIN 29.7 pg (27.0-33.0); MEAN CORPUSCULAR HGB CONC 30.8 g/dl (32.0-36.5); MEAN CORPUSCULAR VOLUME 96.4 fl (80.0-96.0); MONO # 0.6 10^3/uL (0.0-0.8); MONO % 8.7 % (0.0-5.0); NEUTROPHILS # 4.9 10^3/uL (1.5-8.5); NEUTROPHILS % 67.4 % (36.0-66.0); PLATELET COUNT, AUTOMATED 242 10^3/uL (150-450); RED BLOOD COUNT 4.18 10^6/uL (4.30-6.10); WHITE BLOOD COUNT 7.3 10^3/uL (4.0-10.0)
[2019-07-12 08:17] LABS: BLOOD UREA NITROGEN 23 MG/DL (7-18); CALCIUM LEVEL 9.2 MG/DL (8.8-10.2); CARBON DIOXIDE LEVEL 28 MEQ/L (21-32); CHLORIDE LEVEL 105 MEQ/L (98-107); CREATININE FOR GFR 1.15 MG/DL (0.70-1.30); GLOMERULAR FILTRATION RATE > 60.0 (>35); GLUCOSE, FASTING 247 MG/DL (70-100); MAGNESIUM LEVEL 2.1 MG/DL (1.8-2.4); POTASSIUM SERUM 4.6 MEQ/L (3.5-5.1); SODIUM LEVEL 139 MEQ/L (136-145)
[2019-07-12] MEDS: FINASTERIDE 5 MG TAB PO SCH (08:58)
[2019-07-12] MEDS: ACETAMINOPHEN TAB 650MG DOSE (2X325MG) PO SCH ×3 (08:58→21:28)
[2019-07-12] MEDS: CARVedilol 12.5 MG TAB PO SCH ×2 (08:58→21:30)
[2019-07-12] MEDS: AUGMENTIN 875 MG TAB PO SCH ×2 (08:58→21:28)
[2019-07-12] MEDS: LEVEMIR (INSULIN DETEMIR) 1 UNITS/0.01ML SC SCH (08:59)
[2019-07-12] MEDS: HEPARIN SOD (PORCINE) 5000 UNITS/ML VIAL (J1644 PER 1000UNITS) SC SCH ×2 (08:59→21:28)
[2019-07-12] MEDS: DOCUSATE SODIUM 100 MG CAP PO SCH ×2 (08:59→21:30)
[2019-07-12 14:00] VITALS: BP 105/61
[2019-07-12 20:00] VITALS: BP 120/71
[2019-07-12] MEDS: ISOSORBIDE MON. (IMDUR) 30 MG XR TAB PO SCH (21:29)
[2019-07-12] MEDS: SERTRALINE HCL 25 MG TABLET PO SCH (21:29)
[2019-07-12] MEDS: ATORVASTATIN 20 MG TAB PO SCH (21:30)
[2019-07-12] MEDS: TAMSULOSIN 0.4 MG CAP PO SCH (21:30)
[2019-07-13] MEDS: guaiFENesin 200 MG TAB PO SCH ×5 (00:48→23:26)
[2019-07-13 05:42] VITALS: BP 135/70
[2019-07-13 06:27] LABS: BASO % 0.7 % (0.0-1.0); EOS # 0.3 10^3/uL (0.0-0.5); EOS % 4.8 % (0.0-3.0); HEMATOCRIT 38.9 % (42.0-52.0); HEMOGLOBIN 12.3 g/dl (13.5-17.5); LYMPH # 1.2 10^3/uL (1.5-5.0); LYMPH % 21.3 % (24.0-44.0); MEAN CORPUSCULAR HEMOGLOBIN 30.1 pg (27.0-33.0); MEAN CORPUSCULAR HGB CONC 31.6 g/dl (32.0-36.5); MEAN CORPUSCULAR VOLUME 95.3 fl (80.0-96.0); MONO # 0.5 10^3/uL (0.0-0.8); MONO % 9.2 % (0.0-5.0); NEUTROPHILS # 3.6 10^3/uL (1.5-8.5); NEUTROPHILS % 63.6 % (36.0-66.0); PLATELET COUNT, AUTOMATED 243 10^3/uL (150-450); RED BLOOD COUNT 4.08 10^6/uL (4.30-6.10); WHITE BLOOD COUNT 5.6 10^3/uL (4.0-10.0)
[2019-07-13 06:47] LABS: BLOOD UREA NITROGEN 20 MG/DL (7-18); CALCIUM LEVEL 9.2 MG/DL (8.8-10.2); CARBON DIOXIDE LEVEL 27 MEQ/L (21-32); CHLORIDE LEVEL 107 MEQ/L (98-107); CREATININE FOR GFR 1.02 MG/DL (0.70-1.30); GLOMERULAR FILTRATION RATE > 60.0 (>35); GLUCOSE, FASTING 228 MG/DL (70-100); MAGNESIUM LEVEL 2.1 MG/DL (1.8-2.4); POTASSIUM SERUM 4.6 MEQ/L (3.5-5.1); SODIUM LEVEL 139 MEQ/L (136-145)
[2019-07-13] MEDS: AUGMENTIN 875 MG TAB PO SCH ×2 (08:58→20:44)
[2019-07-13] MEDS: FINASTERIDE 5 MG TAB PO SCH (08:58)
[2019-07-13] MEDS: HEPARIN SOD (PORCINE) 5000 UNITS/ML VIAL (J1644 PER 1000UNITS) SC SCH ×2 (08:58→20:48)
[2019-07-13] MEDS: LEVEMIR (INSULIN DETEMIR) 1 UNITS/0.01ML SC SCH (09:00)
[2019-07-13] MEDS: CARVedilol 12.5 MG TAB PO SCH ×2 (09:00→20:52)
[2019-07-13] MEDS: ACETAMINOPHEN TAB 650MG DOSE (2X325MG) PO SCH ×3 (09:00→20:44)
[2019-07-13] MEDS: DOCUSATE SODIUM 100 MG CAP PO SCH ×2 (09:00→20:43)
[2019-07-13] MEDS: HumaLOG INSULIN (NovoLOG) PER UNIT SC SCH ×4 (09:01→20:49)
[2019-07-13 14:00] VITALS: BP 132/70
[2019-07-13 20:40] VITALS: BP 141/64
[2019-07-13] MEDS: ATORVASTATIN 20 MG TAB PO SCH (20:43)
[2019-07-13] MEDS: TAMSULOSIN 0.4 MG CAP PO SCH (20:44)
[2019-07-13] MEDS: SERTRALINE HCL 25 MG TABLET PO SCH (20:44)
[2019-07-13] MEDS: ISOSORBIDE MON. (IMDUR) 30 MG XR TAB PO SCH (20:51)
[2019-07-14] MEDS: MAALOX 30 ML SUSP *UDC PO PRN (02:54)
[2019-07-14] MEDS: guaiFENesin 200 MG TAB PO SCH ×3 (05:10→17:19)
[2019-07-14 06:00] VITALS: BP 137/92
[2019-07-14 06:34] LABS: BASO % 0.4 % (0.0-1.0); EOS # 0.2 10^3/uL (0.0-0.5); EOS % 4.2 % (0.0-3.0); HEMATOCRIT 35.4 % (42.0-52.0); HEMOGLOBIN 11.2 g/dl (13.5-17.5); LYMPH # 1.3 10^3/uL (1.5-5.0); LYMPH % 23.2 % (24.0-44.0); MEAN CORPUSCULAR HEMOGLOBIN 30.2 pg (27.0-33.0); MEAN CORPUSCULAR HGB CONC 31.6 g/dl (32.0-36.5); MEAN CORPUSCULAR VOLUME 95.4 fl (80.0-96.0); MONO # 0.6 10^3/uL (0.0-0.8); MONO % 10.1 % (0.0-5.0); NEUTROPHILS # 3.3 10^3/uL (1.5-8.5); NEUTROPHILS % 61.7 % (36.0-66.0); PLATELET COUNT, AUTOMATED 217 10^3/uL (150-450); RED BLOOD COUNT 3.71 10^6/uL (4.30-6.10); WHITE BLOOD COUNT 5.4 10^3/uL (4.0-10.0)
[2019-07-14 07:01] LABS: BLOOD UREA NITROGEN 24 MG/DL (7-18); CALCIUM LEVEL 8.8 MG/DL (8.8-10.2); CARBON DIOXIDE LEVEL 29 MEQ/L (21-32); CHLORIDE LEVEL 103 MEQ/L (98-107); CREATININE FOR GFR 1.02 MG/DL (0.70-1.30); GLOMERULAR FILTRATION RATE > 60.0 (>35); GLUCOSE, FASTING 250 MG/DL (70-100); POTASSIUM SERUM 4.5 MEQ/L (3.5-5.1); SODIUM LEVEL 136 MEQ/L (136-145)
[2019-07-14] MEDS: FINASTERIDE 5 MG TAB PO SCH (09:01)
[2019-07-14] MEDS: DOCUSATE SODIUM 100 MG CAP PO SCH ×2 (09:01→21:59)
[2019-07-14] MEDS: AUGMENTIN 875 MG TAB PO SCH ×2 (09:01→21:58)
[2019-07-14] MEDS: CARVedilol 12.5 MG TAB PO SCH ×2 (09:01→22:00)
[2019-07-14] MEDS: ACETAMINOPHEN TAB 650MG DOSE (2X325MG) PO SCH ×3 (09:01→21:58)
[2019-07-14] MEDS: HEPARIN SOD (PORCINE) 5000 UNITS/ML VIAL (J1644 PER 1000UNITS) SC SCH ×2 (09:02→21:59)
[2019-07-14] MEDS: HumaLOG INSULIN (NovoLOG) PER UNIT SC SCH ×4 (09:02→20:59)
[2019-07-14] MEDS: LEVEMIR (INSULIN DETEMIR) 1 UNITS/0.01ML SC SCH (09:02)
[2019-07-14 14:00] VITALS: BP 122/62
[2019-07-14] MEDS: TAMSULOSIN 0.4 MG CAP PO SCH (21:58)
[2019-07-14] MEDS: ISOSORBIDE MON. (IMDUR) 30 MG XR TAB PO SCH (21:59)
[2019-07-14] MEDS: SERTRALINE HCL 25 MG TABLET PO SCH (21:59)
[2019-07-14] MEDS: ATORVASTATIN 20 MG TAB PO SCH (22:00)
[2019-07-15] MEDS: guaiFENesin 200 MG TAB PO SCH ×4 (00:51→17:36)
[2019-07-15 06:00] VITALS: BP 121/70
[2019-07-15] MEDS: HumaLOG INSULIN (NovoLOG) PER UNIT SC SCH ×4 (07:30→21:00)
[2019-07-15] MEDS: FINASTERIDE 5 MG TAB PO SCH (08:30)
[2019-07-15] MEDS: DOCUSATE SODIUM 100 MG CAP PO SCH ×2 (08:30→20:59)
[2019-07-15] MEDS: LEVEMIR (INSULIN DETEMIR) 1 UNITS/0.01ML SC SCH (08:30)
[2019-07-15] MEDS: CARVedilol 12.5 MG TAB PO SCH ×2 (08:30→20:58)
[2019-07-15] MEDS: ACETAMINOPHEN TAB 650MG DOSE (2X325MG) PO SCH ×3 (08:30→20:59)
[2019-07-15] MEDS: HEPARIN SOD (PORCINE) 5000 UNITS/ML VIAL (J1644 PER 1000UNITS) SC SCH ×2 (08:31→20:59)
[2019-07-15] MEDS: ATORVASTATIN 20 MG TAB PO SCH (20:58)
[2019-07-15] MEDS: SERTRALINE HCL 25 MG TABLET PO SCH (20:58)
[2019-07-15] MEDS: ISOSORBIDE MON. (IMDUR) 30 MG XR TAB PO SCH (20:58)
[2019-07-15] MEDS: TAMSULOSIN 0.4 MG CAP PO SCH (21:00)
[2019-07-16] MEDS: guaiFENesin 200 MG TAB PO SCH ×4 (00:06→17:11)
[2019-07-16 06:07] VITALS: BP 137/85
[2019-07-16 08:18] VITALS: BP 137/85
[2019-07-16] MEDS: CARVedilol 12.5 MG TAB PO SCH (08:18)
[2019-07-16] MEDS: HEPARIN SOD (PORCINE) 5000 UNITS/ML VIAL (J1644 PER 1000UNITS) SC SCH (08:18)
[2019-07-16] MEDS: DOCUSATE SODIUM 100 MG CAP PO SCH (08:18)
[2019-07-16] MEDS: FINASTERIDE 5 MG TAB PO SCH (08:19)
[2019-07-16] MEDS: HumaLOG INSULIN (NovoLOG) PER UNIT SC SCH ×3 (08:19→17:12)
[2019-07-16] MEDS: ACETAMINOPHEN TAB 650MG DOSE (2X325MG) PO SCH ×2 (08:19→17:12)
[2019-07-16] MEDS: LEVEMIR (INSULIN DETEMIR) 1 UNITS/0.01ML SC SCH (08:20)
[2019-07-16] MEDS ORDERED: ATOR1TAB21 PO (13:12)
[2019-07-16] MEDS ORDERED: GUAI20TA PO (13:12)
--- NOTE | 2019-07-16 13:32 | DS.PDOC ---
Discharge Summary General Date of Admission Jul 05, 2019 at 20:43 Date of Discharge 07/16/2019 Discharge Summary PROCEDURES PERFORMED DURING STAY: [None]. ADMITTING DIAGNOSES: 1. Acute hyperglycemia / IDDM associated with pseudohyponatremia 2. NICK on CKD 3. Depression with homicidal ideation 4. Chronic atrial fibrillation 5. CAD / Dyslipidemia 6. Chronic Hypertension 7. BPH DISCHARGE DIAGNOSES: 1. Acute hyperglycemia / IDDM 2. Cognitive limitations 3. Depression 4. Acute bacterial bronchitis 5. Chronic atrial fibrillation 6. CAD 7. Dyslipidemia 8. Chronic Hypertension 9. BPH 10. NICK on CKD COMPLICATIONS/CHIEF COMPLAINT: Nick; Hyperglycemia. HISTORY OF PRESENT ILLNESS: "This is an 88-year-old male who was brought to the ER for evaluation by his children. Apparently, him and his who has Alzheimer's disease have been arguing a lot. The patient has been making homicidal remarks towards both his daughter and his . The patient's family requested placement. The patient reports feeling well in general. He denies having nausea, vomiting, abdominal pain, fevers or chills. He agrees with assessment that he does not along with his and agrees that he prefer not to go back home when his ready for discharge. He admits to feeling down, not having interest in his previous activities, having a poor appetite, and spends most of the day and night sleeping. The patient has multiple medical problems including diabetes and has not taken his medications for about 1 year; he admits to feeling very thirsty and urinating frequently" HOSPITAL COURSE: Pt was admitted to the hospital as noted above. With medication compliance and fluid hydration, acute NICK, hyperglycemia, mild leukocytosis (no lactic acidosis/Sepsis criteria) quickly improved and subsequently resolved. Pt denied HI/SI to day staff and a psychiatric consult was deferred. Patient's family later described a pattern of threatening behaviors towards them in the home to the PFS/nursing team. A cognitive study noted 'severe cognitive impairment.' Psychiatry consulted and pt was Rx Seroquel 2/2 Vascular vs Alzheimer's dementia. Seroquel discontinued after 2 doses due to blurred vision and the patient had not displayed any adverse or aggressive behaviors since his admission. Blurred vision resolved. Pt reported a persistent, productive cough 07/08; throat culture +ve Moraxella catarrhalis. Treated to completion with Augmentin. Pt was medically optimized and trans ferred to [facility]C status on 07/08. Family requested the pt was placed due to his violent behaviors in the home. Pt is to be transferred today. DISCHARGE MEDICATIONS: Please see below. ALLERGIES: Please see below. PHYSICAL EXAMINATION ON DISCHARGE: VITAL SIGNS: Please see below. General: No acute distress, Alert, frail elderly man Eyes: Normal sclera, EOMI, ILENE, HENT: Atraumatic, neck supple, pharynx normal Cardiovascular: Normal rate. Distant heart sounds. Pulmonary: clear to auscultation GI: Soft, nontender, nondistended Skin: Warm and dry Neuro: CN grossly intact. No focal deficits. Psych: oriented to place and person LABORATORY DATA: Please see below. IMAGING:see EMR ACTIVITY: [As tolerated]. DIET: Regular DISCHARGE PLAN: [facility] placement DISPOSITION: d/c to [facility] DISCHARGE INSTRUCTIONS: 1. n/a ITEMS TO FOLLOWUP ON ON OUTPATIENT: 1. n/a DISCHARGE CONDITION: [Stable]. TIME SPENT ON DISCHARGE: 32 minutes Vital Signs/I&Os Vital Signs Date Time Temp Pulse Resp B/P (MAP) Pulse Ox O2 Delivery O2 Flow Rate FiO2 07/16/19 08:18 72 137/85 07/16/19 06:07 98.2 17 96 Room Air I&O- Last 24 Hours up to 6 AM 07/16/19 06:00 Intake Total 1900 ml Output Total 1125 ml Balance 775 ml Laboratory Data Labs 24H Laboratory Tests 2 07/15/19 17:09: Bedside Glucose (Misc Panel) 244H 07/15/19 19:48: Bedside Glucose (Misc Panel) 304H 07/16/19 05:32: Bedside Glucose (Misc Panel) 136H 07/16/19 11:59: Bedside Glucose (Misc Panel) 272H FSBS Laboratory Tests Test 07/15/19 17:09 07/15/19 19:48 07/16/19 05:32 07/16/19 11:59 Range/Units Bedside Glucose (Misc Panel) 244 304 136 272 83-110 MG/DL Microbiology Microbiology 07/08/19 Gram Stain - Final, Complete 07/08/19 Sputum Culture - Final, Complete Moraxella Catarrhalis Discharge Medications Scheduled Atorvastatin Calcium (Atorvastatin Calcium) 20 Mg Tablet, 20 MG PO QHS Carvedilol (Carvedilol) 25 Mg Tab, 12.5 MG PO BID, (Reported) Ergocalciferol (Vitamin D2) (Vitamin D2) 50,000 Units Cap, 50,000 UNITS PO 1XWK, (Reported) Finasteride (Finasteride) 5 Mg Tab, 5 MG PO DAILY, (Reported) Guaifenesin (Guaifenesin) 200 Mg Tablet, 400 MG PO Q6H Insulin Detemir (Levemir Flextouch) 100 Unit/1 Ml Insuln.pen, 20 UNIT SC DAILY, (Reported) Isosorbide Mononitrate (Isosorbide Mononitrate ER) 30 Mg Tab, 30 MG PO QPM, (Re ported) Sertraline Hcl (Sertraline HCl) 50 Mg Tab, 50 MG PO QPM, (Reported) Sitagliptin (Januvia) 50 Mg Tab, 50 MG PO DAILY, (Reported) Tamsulosin HCl (Flomax) 0.4 Mg Cap, 0.4 MG PO QPM, (Reported) Scheduled PRN Acetaminophen (Acetaminophen) 325 Mg Tablet, 650 MG PO Q4H PRN for PAIN, (Reported) Allergies Coded Allergies: gabapentin (Verified Allergy, Unknown, 07/05/19) omeprazole (Verified Allergy, Unknown, 07/05/19) GEOR[place]IA HERRERA PA-C Jul 16, 2019 13:32
== END 2019-07-16 19:19 | DRG 638 ==
LOC: M ED 17:17 → M ED INP 20:43 → ENRESERVDT 22:18 → ENRESERVTM 22:18 → M MS5PR 22:52
PROVIDERS: ADMIT Internal Medicine; ATTEND Internal Medicine Nephrology
DX: E11.65 Type 2 diabetes mellitus with hyperglycemia (principal); I48.20 Chronic atrial fibrillation, unspecified; N17.9 Acute kidney failure, unspecified; E87.1 Hypo-osmolality and hyponatremia; Z91.14 Patient's other noncompliance with medication regimen; I25.10 Atherosclerotic heart disease of native coronary artery without angina pectoris; I12.9 Hypertensive chronic kidney disease with stage 1 through stage 4 chronic kidney disease, or unspecified chronic kidney disease; N40.0 Benign prostatic hyperplasia without lower urinary tract symptoms; E78.5 Hyperlipidemia, unspecified; N18.3 Chronic kidney disease, stage 3 (moderate); E11.22 Type 2 diabetes mellitus with diabetic chronic kidney disease; Z87.891 Personal history of nicotine dependence; E86.0 Dehydration; Z88.8 Allergy status to other drugs, medicaments and biological substances; F32.9 Major depressive disorder, single episode, unspecified; F01.50 Vascular dementia, unspecified severity, without behavioral disturbance, psychotic disturbance, mood disturbance, and anxiety; G30.9 Alzheimer's disease, unspecified; F02.80 Dementia in other diseases classified elsewhere, unspecified severity, without behavioral disturbance, psychotic disturbance, mood disturbance, and anxiety; J20.9 Acute bronchitis, unspecified; H53.8 Other visual disturbances; R45.850 Homicidal ideations